=== PATIENT | male | born 1955 | race American Indian/Alaskan Native ===

== ENCOUNTER 2020-12-31 15:18 | Inpatient (IN) | payer OTHER ==
--- NOTE | 2020-12-31 16:31 | Event Note ---
ED Screening Note Date of service: 12/31/20 Time: 16:29 ED Screening Note: pt c/o generalized weakness, fatigue, shortness of breath, diarrhea, generalized body aches and urinary frequency. Patient states that he got his last Covid vaccine last weeks and his symptoms started after getting vaccine. He denies any significant past medical hx O2 sat noted to 90s-94% on RA in triage This initial assessment/diagnostic orders/clinical plan/treatment(s) is/are subject to change based on patients health status, clinical progression and re- assessment by fellow clinical providers in the ED. Further treatment and workup at subsequent clinical providers discretion. Patient/guardian urged not to elope from the ED as their condition may be serious if not clinically assessed and managed. Initial orders include: labs/ekg/cxr
[2020-12-31 16:57] LABS: Mucus,Urine FEW /HPF
[2020-12-31 17:01] LABS: Bilirubin,Urine NEG (Negative); Blood,Urine SM (Negative); Color,Urine Yellow (Yellow); Urobilinogen,Urine < 2.0 mg/dL (<2.0)
--- NOTE | 2020-12-31 17:20 | XRay Report ---
CHEST 2 VIEWS INDICATION / CLINICAL INFORMATION: Chest Pain. COMPARISON: None available. FINDINGS: SUPPORT DEVICES: None. HEART / MEDIASTINUM: Borderline cardiomegaly LUNGS / PLEURA: Mild/moderate increased interstitial markings characteristic for pulmonary edema note d No pneumothorax. ADDITIONAL FINDINGS: No significant additional findings. IMPRESSION: 1. Mild CHF. Signer Name: Dejan Rob MD Signed: 12/31/2020 5:16 PM Workstation Name: [id number]
[2020-12-31 18:12] LABS: Basophils % (Auto) 0.4 % (0.0-1.8); Hematocrit 37.4 % (35.5-45.6); Hemoglobin 12.8 gm/dl (11.8-15.2); Lymphocytes # (Auto) 0.7 K/mm3 (1.2-5.4); Lymphocytes % (Auto) 7.5 % (13.4-35.0); Mean Corpuscular HGB Conc 34 % (32-34); Mean Corpuscular Volume 86 fl (84-94); Monocytes # (Auto) 0.6 K/mm3 (0.0-0.8); Monocytes % (Auto) 5.7 % (0.0-7.3); Platelet Count 184 K/mm3 (140-440); Red Blood Count 4.33 M/mm3 (3.65-5.03); Red Cell Distribution Width 13.4 % (13.2-15.2)
[2020-12-31 18:18] LABS: Alanine Aminotransferase 33 units/L (7-56); Albumin 3.4 g/dL (3.9-5); BUN/Creatinine Ratio 12; Blood Urea Nitrogen 16 mg/dL (9-20); Calcium 8.4 mg/dL (8.4-10.2); Hemolysis Index 5
--- NOTE | 2020-12-31 20:57 | Emergency Department Report ---
ED General Adult HPI - General Chief complaint: Upper Respiratory Infection Stated complaint: YUNIOR, NOT REALLY EATING, NO ENERGY PUI?: Yes Time Seen by Provider: 12/31/20 20:33 Source: patient, RN notes reviewed Mode of arrival: Ambulatory Limitations: No Limitations - History of Present Illness Initial comments: The patient was evaluated in the emergency department for symptoms described in the history of present illness. He/she was evaluated in the context of the global COVID-19 pandemic, which necessitated consideration that the patient might be at risk for infection with the virus that causes COVID-19. Institutional protocols and algorithms that pertain to the evaluation of patients at risk for COVID-19 are in a state of rapid change based on information released by regulatory bodies including the CDC and federal and state organizations. These policies and algorithms were followed during the patient's care in the emergency department. Please note that these policies, procedures and recommendations changed on a rapid basis. During the entire history and physical examination, I had on complete personal protective equipment. The patient is a 65-year-old gentleman. He has a past medical history of obesit y, obstructive sleep apnea, does not use nocturnal CPAP, uses bite block, and hypertension. He also reports having received 2 rounds of COVID-19 vaccination. Patient reports that approximately 9 to 10 days ago, he developed malaise, shortness of breath, fatigue, weakness, questionable loss of taste and smell, and body aches. This is closely related to his second COVID-19 vaccination. To the best of his recollection, he does not have a history of hyperglycemia/diabetes, or congestive heart failure. No fevers that he is aware of. No headache. No neck pain. No chest pain. No abdominal pain. No urinary symptoms. Positive intermittent diarrhea. Positive body aches. He typically sleeps on 2-3 pillows, but recently has been sleeping flat. No unintentional weight gain that he is aware of. Symptoms worsen with physical exertion. They decreased with rest. -: Gradual, days(s) Consistency: intermittent Improves with: rest Worsens with: movement - Related Data Previous Rx's Medication Instructions Recorded Last Taken Type HYDROcodone/APAP 7.5-325 [[place] 1 each PO Q6HR PRN #20 tablet 11/16/13 Unknown Rx 7.5/325 mg] Allergies Allergy/AdvReac Type Severity Reaction Status Date / Time No Known Allergies Allergy Unverified 11/16/13 13:08 ED Review of Systems ROS: Stated complaint: YUNIOR, NOT REALLY EATING, NO ENERGY Other details as noted in HPI Constitutional: malaise, weakness Eyes: denies: eye discharge ENT: congestion Respiratory: shortness of breath Cardiovascular: dyspnea on exertion Gastrointestinal: denies: nausea, vomiting, hematemesis, melena, hematochezia Genitourinary: denies: dysuria Musculoskeletal: myalgia Neurological: weakness Hematological/Lymphatic: denies: easy bleeding ED Past Medical Hx - Past Medical History Previous Medical History?: Yes Hx GERD: Yes Additional medical history: Rotator tendinitis - Surgical History Past Surgical History?: No - Social History Smoking Status: Former Smoker Substance Use Type: Prescribed - Medications Home Medications: Home Medications Medication Instructions Recorded Confirmed Last Taken Type HYDROcodone/APAP 7.5-325 [[place] 1 each PO Q6HR PRN #20 tablet 11/16/13 Unknown Rx 7.5/325 mg] ED Physical Exam - General Limitations: Physical Limitation General appearance: alert, anxious, obese - Head Head exam: Present: atraumatic, normocephalic - Eye Eye exam: Present: normal appearance, EOMI. Absent: nystagmus - ENT ENT exam: Present: normal exam, normal orophraynx, mucous membranes moist, normal external ear exam - Neck Neck exam: Present: normal inspection, full ROM. Absent: tenderness, meningi smus - Respiratory Respiratory exam: Present: rales. Absent: respiratory distress, wheezes, rhonchi, stridor - Cardiovascular Cardiovascular Exam: Present: regular rate, normal rhythm, normal heart sounds, JVD (2 to 3 cm of JVD bilaterally). Absent: bradycardia, tachycardia, irregular rhythm, systolic murmur, diastolic murmur, rubs, gallop - GI/Abdominal GI/Abdominal exam: Present: soft. Absent: distended, tenderness, guarding, rebound, rigid, pulsatile mass - Rectal Rectal exam: Present: deferred - Extremities Exam Extremities exam: Present: normal inspection, full ROM, pedal edema (1+ edema bi lateral lower extremities), other (2+ pulses noted in the bilateral upper and lower extremities. There is no palpable cord. negative Homans sign. Muscular compartments are soft. The pelvis is stable.). Absent: calf tenderness - Back Exam Back exam: Present: normal inspection, full ROM. Absent: tenderness, CVA tenderness (R), CVA tenderness (L), paraspinal tenderness, vertebral tenderness - Neurological Exam Neurological exam: Present: alert, normal gait, other (No facial droop. Tongue midline. Extraocular movements intact bilaterally. Facial sensation intact to light touch in V1, V2, V3 distribution bilaterally. 5 and a 5 strength in 4 extremities. Sensation intact to light touch in 4 extremities.). Absent: motor sensory deficit - Psychiatric Psychiatric exam: Present: normal affect, normal mood, anxious - Skin Skin exam: Present: warm, dry, intact, normal color. Absent: rash ED Course Vital Signs 12/31/20 12/31/20 16:28 21:20 Temperature 99 F Pulse Rate 99 H Respiratory 22 Rate Blood Pressure 145/77 O2 Sat by Pulse 94 Oximetry O2 Sat by Pulse 89 Oximetry [ Digit-Finger] - Reevaluation(s) Reevaluation #1: 12/31/20 21:17 Differential diagnosis, including but not limited to: COVID-19, cardiomyopathy, congestive heart failure, adverse effect of vaccination Assessment and plan: 65-year-old gentleman, hypoxic on room air, to 89%, with shortness of breath, malaise, fatigue, chest x-ray suggestive of congestive heart failure, no known history of diabetes, with clinical and radiographic ma nifestations of decompensated acute congestive heart failure. Placed patient on isolation. Administer supplemental oxygen, steroids, insulin for hyperglycemia, aspirin, and Lasix therapy. Start isolation precautions. Obtain Covid laboratory studies. Obtain troponin, proBNP. Admit patient to the medical service for initial evaluation, management, and stabilization. Have discussed this plan of care with the patient, who verbalized understanding, and who is amenable to this plan of care. Hospital physician is paged to arrange admission. 12/31/20 21:43 Dr Sutherland to admit to IMS/ TELEmetry - Pulse Oximetry Interpretation Digit-Finger Initial Pulse Oximetry Readin O2 Sat by Pulse Oximetry: 89 Actions Taken: other (Placed on supplemental oxygen/nasal cannula) ED Medical Decision Making - Lab Data Result diagrams: 12/31/20 16:59 12/31/20 16:59 Vital Signs 12/31/20 16:28 Temperature 99 F Pulse Rate 99 H Respiratory 22 Rate Blood Pressure 145/77 O2 Sat by Pulse 94 Oximetry Lab Results 12/31/20 12/31/20 12/31/20 Range/Units 16:39 16:59 16:59 WBC 9.9 (4.5-11.0) K/mm3 RBC 4.33 (3.65-5.03) M/mm3 Hgb 12.8 (11.8-15.2) gm/dl Hct 37.4 (35.5-45.6) % MCV 86 (84-94) fl MCH 30 (28-32) pg MCHC 34 (32-34) % RDW 13.4 (13.2-15.2) % Plt Count 184 (140-440) K/mm3 Lymph % (Auto) 7.5 L (13.4-35.0) % [place] % (Auto) 5.7 (0.0-7.3) % Eos % (Auto) 0.0 (0.0-4.3) % Baso % (Auto) 0.4 (0.0-1.8) % Lymph # (Auto) 0.7 L (1.2-5.4) K/mm3 [place] # (Auto) 0.6 (0.0-0.8) K/mm3 Eos # (Auto) 0.0 (0.0-0.4) K/mm3 Baso # (Auto) 0.0 (0.0-0.1) K/mm3 Seg Neutrophils % 86.4 H (40.0-70.0) % Seg Neutrophils # 8.6 H (1.8-7.7) K/mm3 Sodium 132 L (137-145) mmol/L Potassium 4.8 (3.6-5.0) mmol/L Chloride 91.6 L (98-107) mmol/L Carbon Dioxide 25 (22-30) mmol/L Anion Gap 20 mmol/L BUN 16 (9-20) mg/dL Creatinine 1.3 (0.8-1.3) mg/dL Estimated GFR > 60 ml/min BUN/Creatinine Ratio 12 % Glucose 326 H (75-100) mg/dL Calcium 8.4 (8.4-10.2) mg/dL Total Bilirubin 0.50 (0.1-1.2) mg/dL AST 39 (5-40) units/L ALT 33 (7-56) units/L Alkaline Phosphatase 90 (35-129) units/L Total Creatine Kinase (55-170) units/L Troponin T < 0.010 (0.00-0.029) ng/mL Total Protein 7.0 (6.3-8.2) g/dL Albumin 3.4 L (3.9-5) g/dL Albumin/Globulin Ratio 0.9 % Lipase 64 H (13-60) units/L Urine Color Yellow (Yellow) Urine Turbidity Clear (Clear) Urine pH 5.0 (5.0-7.0) Ur Specific [place] 1.029 (1.003-1.030) Urine Protein 100 mg/dl (Negative) mg/dL Urine Glucose (UA) >=500 (Negative) mg/dL Urine Ketones 20 (Negative) mg/dL Urine Blood Sm (Negative) Urine Nitrite Neg (Negative) Ur Reducing Substances Not Reportable Urine Bilirubin Neg (Negative) Urine Ictotest Not Reportable Urine Urobilinogen < 2.0 (<2.0) mg/dL Ur Leukocyte Esterase Neg (Negative) Urine WBC (Auto) 1.0 (0.0-6.0) /HPF Urine RBC (Auto) 2.0 (0.0-6.0) /HPF U Epithel Cells (Auto) < 1.0 (0-13.0) /HPF Urine Mucus Few /HPF // Range/Units 17:04 WBC (4.5-11.0) K/mm3 RBC (3.65-5.03) M/mm3 Hgb (11.8-15.2) gm/dl Hct (35.5-45.6) % MCV (84-94) fl MCH (28-32) pg MCHC (32-34) % RDW (13.2-15.2) % Plt Count (140-440) K/mm3 Lymph % (Auto) (13.4-35.0) % [place] % (Auto) (0.0-7.3) % Eos % (Auto) (0.0-4.3) % Baso % (Auto) (0.0-1.8) % Lymph # (Auto) (1.2-5.4) K/mm3 [place] # (Auto) (0.0-0.8) K/mm3 Eos # (Auto) (0.0-0.4) K/mm3 Baso # (Auto) (0.0-0.1) K/mm3 Seg Neutrophils % (40.0-70.0) % Seg Neutrophils # (1.8-7.7) K/mm3 Sodium (137-145) mmol/L Potassium (3.6-5.0) mmol/L Chloride (98-107) mmol/L Carbon Dioxide (22-30) mmol/L Anion Gap mmol/L BUN (9-20) mg/dL Creatinine (0.8-1.3) mg/dL Estimated GFR ml/min BUN/Creatinine Ratio % Glucose (75-100) mg/dL Calcium (8.4-10.2) mg/dL Total Bilirubin (0.1-1.2) mg/dL AST (5-40) units/L ALT (7-56) units/L Alkaline Phosphatase (35-129) units/L Total Creatine Kinase 378 H (55-170) units/L Troponin T (0.00-0.029) ng/mL Total Protein (6.3-8.2) g/dL Albumin (3.9-5) g/dL Albumin/Globulin Ratio % Lipase (13-60) units/L Urine Color (Yellow) Urine Turbidity (Clear) Urine pH (5.0-7.0) Ur Specific [place] (1.003-1.030) Urine Protein (Negative) mg/dL Urine Glucose (UA) (Negative) mg/dL Urine Ketones (Negative) mg/dL Urine Blood (Negative) Urine Nitrite (Negative) Ur Reducing Substances Urine Bilirubin (Negative) Urine Ictotest Urine Urobilinogen (<2.0) mg/dL Ur Leukocyte Esterase (Negative) Urine WBC (Auto) (0.0-6.0) /HPF Urine RBC (Auto) (0.0-6.0) /HPF U Epithel Cells (Auto) (0-13.0) /HPF Urine Mucus /HPF - EKG Data -: EKG Interpreted by Ut EKG shows normal: sinus rhythm Rate: normal - EKG Data When compared to previous EKG there are: previous EKG unavailable 12/31/20 21:19 There is no prior EKG available for interpretation. Sinus rhythm. 95 bpm. Left axis deviation, left anterior fascicular block. Left ventricular hypertrophy. T wave inversions in the lateral leads. This is an abnormal EKG, this is not a STEMI. - Radiology Data Radiology results: pending, report reviewed, image reviewed [facility] [address] [place] [address] XRay Report Signed Patient: RENE LANDRUM MR#: [id number] : 1955 Acct:[id number] Age/Sex: 65 / M ADM Date: 12/31/20 Loc: ED Attending Dr: Ordering Physician: ROLY SAUER Date of Service: 12/31/20 Procedure(s): XR chest routine 2V Accession Number(s): [id number] cc: ROLY SAUER Fluoro Time In Minutes: CHEST 2 VIEWS INDICATION / CLINICAL INFORMATION: Chest Pain. COMPARISON: None available. FINDINGS: SUPPORT DEVICES: None. HEART / MEDIASTINUM: Borderline cardiomegaly LUNGS / PLEURA: Mild/moderate increased interstitial markings characteristic for pulmonary edema noted No pneumothorax. ADDITIONAL FINDINGS: No significant additional findings. IMPRESSION: 1. Mild CHF. Signer Name: Dejan Rob MD Signed: 12/31/2020 5:16 PM Workstation Name: [id number] Transcribed By: TL Dictated By: Dejan Rob MD Electronically Authenticated By: Dejan Rob MD Signed Date/Time: 12/31/201715 DD/ 14 Critical Care Time: Yes Critical care time in (mins) excluding proc time.: 35 Critical care attestation.: If time is entered above; I have spent that time in minutes in the direct care of this critically ill patient, excluding procedure time. ED Disposition Clinical Impression: Acute respiratory failure with hypoxia, Hyperglycemia, Suspected 2019 novel coronavirus infection, BMI 36.0-36.9,adult Acute CHF Qualifiers: Heart failure type: unspecified Qualified Code(s): I50.9 - Heart failure, unspecified Disposition: OP ADMIT IP TO THIS HOSP Is pt being admited?: Yes Does the pt Need Aspirin: No Condition: Fair Referrals: PRIMARY CARE, [Primary Care Provider] - 3-5 Days
[2020-12-31] MEDS ORDERED: FUROSEMIDE 40 MG/4 ML INJ IV ONE (21:12)
[2020-12-31] MEDS ORDERED: dexAMETHasone 4 MG/ML VIAL IV ONE (21:12)
[2020-12-31] MEDS ORDERED: INSULIN REGULAR, HUMAN 100 UNITS/1 ML IV ONE (21:12)
[2020-12-31] MEDS ORDERED: ACETAMINOPHEN 325 MG TAB PO ONE (21:14)
[2020-12-31] MEDS ORDERED: ASPIRIN 325 MG TAB PO ONE (21:14)
[2020-12-31] MEDS ORDERED: NITROGLYCERIN 0.4 MG TAB SUBL SL PRN (21:47)
[2020-12-31] MEDS ORDERED: hydrALAZINE 20 MG/1 ML INJ IV PRN (21:51)
[2020-12-31] MEDS ORDERED: DEXTROSE 50% IN WATER (25GM) 50 ML SYRINGE IV PRN (21:54)
--- NOTE | 2020-12-31 21:59 | History and Physical Report ---
History of Present Illness Date of examination: 12/31/20 Date of admission: 12/31/2020 Chief complaint: Shortness of breath upper respiratory tract infection History of present illness: 65-year old male with past medical history of obesity, obstructive sleep apnea, does not use nocturnal CPAP, uses bite block, and hypertension was brought to the emergency room because of swelling of the legs malaise shortness of breath fatigue weakness questionable loss of taste and smell and body ache for the last 19 days. He also reports having received 2 rounds of COVID-19 vaccination. This is closely related to his second COVID-19 vaccination. No fevers that he is aware of. No headache. No neck pain. No chest pain. No abdominal pain. No urinary symptoms. Positive intermittent diarrhea. Positive body aches. He typically sleeps on 2-3 pillows, but recently has been sleeping flat. No unintentional weight gain that he is aware of. In the emergency room patient is found to have acute CHF exacerbation. Also patient O2 sat is 89%. Also patient is hyperglycemic blood glucose is 326. Also patient is admitted for suspected PUI Past History Past Medical History: COPD, hypertension, other (Obesity obstructive sleep apnea) Medications and Allergies Allergies Allergy/AdvReac Type Severity Reaction Status Date / Time No Known Allergies Allergy Unverified 11/16/13 13:08 Home Medications Medication Instructions Recorded Confirmed Last Taken Type HYDROcodone/APAP 7.5-325 [[place] 1 each PO Q6HR PRN #20 tablet 11/16/13 Unknown Rx 7.5/325 mg] Active Meds: Active Medications Furosemide (Furosemide 40 Mg/4 Ml Inj) 40 mg IV BID@0600,1800 RENÉ Ceftriaxone Sodium (Rocephin/Ns 2 Gm/100 Ml) 2 gm in 100 mls @ 200 mls/hr IV Q24H RENÉ; Protocol Nitroglycerin (Nitroglycerin 0.4 Mg Tab Subl) 0.4 mg SL .Q5MIN PRN PRN Reason: Chest Pain Review of Systems Cardiovascular: edema, shortness of breath, dyspnea on exertion Respiratory: shortness of breath, dyspnea on exertion Integumentary: other (Edema) Exam - Constitutional Vitals: Temp Pulse Resp BP Pulse Ox 99 F 99 H 22 145/77 89 12/31/20 16:28 12/31/20 16:28 12/31/20 16:28 12/31/20 16:28 12/31/20 21:44 General appearance: Present: no acute distress, well-nourished - EENT Eyes: Present: PERRL ENT: hearing intact, clear oral mucosa - Neck Neck: Present: supple, normal ROM - Respiratory Respiratory effort: normal Respiratory: bilateral: rales - Cardiovascular Heart Sounds: Present: S1 & S2. Absent: rub, click - Extremities Extremities: pulses symmetrical Extremity abnormal: edema Peripheral Pulses: within normal limits - Abdominal General gastrointestinal: Present: soft, non-tender, non-distended, normal bowel sounds Male genitourinary: Present: normal - Integumentary Integumentary: Present: clear, warm, dry - Musculoskeletal Musculoskeletal: gait normal, strength equal bilaterally - Psychiatric Psychiatric: appropriate mood/affect, intact judgment & insight - Neurologic Neurologic: CNII-XII intact, moves all extremities HEART Score - HEART Score Troponin: Troponin T < 0.010 ng/mL (0.00-0.029) 12/31/20 16:59 Results - Labs CBC & Chem 7: 12/31/20 16:59 12/31/20 16:59 Labs: Laboratory Last Values WBC 9.9 K/mm3 (4.5-11.0) 12/31/20 16:59 RBC 4.33 M/mm3 (3.65-5.03) 12/31/20 16:59 Hgb 12.8 gm/dl (11.8-15.2) 12/31/20 16:59 Hct 37.4 % (35.5-45.6) 12/31/20 16:59 MCV 86 fl (84-94) 12/31/20 16:59 MCH 30 pg (28-32) 12/31/20 16:59 MCHC 34 % (32-34) 12/31/20 16:59 RDW 13.4 % (13.2-15.2) 12/31/20 16:59 Plt Count 184 K/mm3 (140-440) 12/31/20 16:59 Lymph % (Auto) 7.5 % (13.4-35.0) L 12/31/20 16:59 [place] % (Auto) 5.7 % (0.0-7.3) 12/31/20 16:59 Eos % (Auto) 0.0 % (0.0-4.3) 12/31/20 16:59 Baso % (Auto) 0.4 % (0.0-1.8) 12/31/20 16:59 Lymph # (Auto) 0.7 K/mm3 (1.2-5.4) L 12/31/20 16:59 [place] # (Auto) 0.6 K/mm3 (0.0-0.8) 12/31/20 16:59 Eos # (Auto) 0.0 K/mm3 (0.0-0.4) 12/31/20 16:59 Baso # (Auto) 0.0 K/mm3 (0.0-0.1) 12/31/20 16:59 Seg Neutrophils % 86.4 % (40.0-70.0) H 12/31/20 16:59 Seg Neutrophils # 8.6 K/mm3 (1.8-7.7) H 12/31/20 16:59 Sodium 132 mmol/L (137-145) L 12/31/20 16:59 Potassium 4.8 mmol/L (3.6-5.0) 12/31/20 16:59 Chloride 91.6 mmol/L (98-107) L 12/31/20 16:59 Carbon Dioxide 25 mmol/L (22-30) 12/31/20 16:59 Anion Gap 20 mmol/L 12/31/20 16:59 BUN 16 mg/dL (9-20) 12/31/20 16:59 Creatinine 1.3 mg/dL (0.8-1.3) 12/31/20 16:59 Estimated GFR > 60 ml/min 12/31/20 16:59 BUN/Creatinine Ratio 12 % 12/31/20 16:59 Glucose 326 mg/dL (75-100) H 12/31/20 16:59 Calcium 8.4 mg/dL (8.4-10.2) 12/31/20 16:59 Total Bilirubin 0.50 mg/dL (0.1-1.2) 12/31/20 16:59 AST 39 units/L (5-40) 12/31/20 16:59 ALT 33 units/L (7-56) 12/31/20 16:59 Alkaline Phosphatase 90 units/L (35-129) 12/31/20 16:59 Total Creatine Kinase 378 units/L (55-170) H 12/31/20 17:04 Troponin T < 0.010 ng/mL (0.00-0.029) 12/31/20 16:59 Total Protein 7.0 g/dL (6.3-8.2) 12/31/20 16:59 Albumin 3.4 g/dL (3.9-5) L 12/31/20 16:59 Albumin/Globulin Ratio 0.9 % 12/31/20 16:59 Lipase 64 units/L (13-60) H 12/31/20 16:59 Urine Color Yellow (Yellow) 12/31/20 16:39 Urine Turbidity Clear (Clear) 12/31/20 16:39 Urine pH 5.0 (5.0-7.0) 12/31/20 16:39 Ur Specific [place] 1.029 (1.003-1.030) 12/31/20 16:39 Urine Protein 100 mg/dl mg/dL (Negative) 12/31/20 16:39 Urine Glucose (UA) >=500 mg/dL (Negative) 12/31/20 16:39 Urine Ketones 20 mg/dL (Negative) 12/31/20 16:39 Urine Blood Sm (Negative) 12/31/20 16:39 Urine Nitrite Neg (Negative) 12/31/20 16:39 Ur Reducing Substances Not Reportable 12/31/20 16:39 Urine Bilirubin Neg (Negative) 12/31/20 16:39 Urine Ictotest Not Reportable 12/31/20 16:39 Urine Urobilinogen < 2.0 mg/dL (<2.0) 12/31/20 16:39 Ur Leukocyte Esterase Neg (Negative) 12/31/20 16:39 Urine WBC (Auto) 1.0 /HPF (0.0-6.0) 12/31/20 16:39 Urine RBC (Auto) 2.0 /HPF (0.0-6.0) 12/31/20 16:39 U Epithel Cells (Auto) < 1.0 /HPF (0-13.0) 12/31/20 16:39 Urine Mucus Few /HPF 12/31/20 16:39 - Imaging and Cardiology Chest x-ray: report reviewed Assessment and Plan VTE prophylaxis?: Chemical Plan of care discussed with patient/family: Yes - Patient Problems (1) Acute CHF Current Visit: Yes Status: Acute Qualifiers: Heart failure type: unspecified Qualified Code(s): I50.9 - Heart failure, unspecified Plan to address problem: Admit admit the patient to the medical telemetry. Cardiac diet. Fluid restr iction 1500cc/day. Lasix 40 mg IV every 12 hours. Will maintain input and output. Echocardiogram. Will consult cardiology if needed (2) Acute respiratory failure with hypoxia Current Visit: Yes Status: Acute Plan to address problem: Oxygen by nasal cannula 3 L/min. DuoNeb by nebulizer every 4 hours as needed. Dexamethasone 6 mg IV daily. We also put the patient on CPAP as needed. We also sent for Covid test (3) BMI 36.0-36.9,adult Current Visit: Yes Status: Acute Plan to address problem: We counseled the patient regarding weight reduction. We also consult dietitian evaluation (4) Hyperglycemia Current Visit: Yes Status: Acute Plan to address problem: We will put the patient on Humalog sliding scale Accu-Chek before meals and at bedtime with moderate dose coverage. Recheck BMP in the morning we also consult diabetic education (5) Suspected 2019 novel coronavirus infection Current Visit: Yes Status: Acute Plan to address problem: Oxygen via nasal cannula 3 L/min. Dexamethasone 6 mg IV daily. Rocephin 2 2 g IV daily and Zithromax 500 IV daily. We do the blood cultures sputum culture. We will send the Covid PCR. We also follow the Covid inflammatory markers. Will consult infectious disease for evaluation of remdesivir (6) DVT prophylaxis Current Visit: Yes Status: Acute Plan to address problem: Heparin 5000 units subcu every 8 hours. Protonix 40 mg p.o. daily for GI prophylaxis. Patient is a full code
[2020-12-31] MEDS ORDERED: cefTRIAXone/NS 2 GM/100 ML 2 GM/100 ML BAG IV SCH (22:00)
[2020-12-31] MEDS ORDERED: FAMOTIDINE 20 MG TAB PO SCH (22:00)
[2020-12-31] MEDS ORDERED: AZITHROMYCIN/NS 500 MG/250 ML 500 MG/250 ML BAG IV SCH (22:00)
[2021-01-01] MEDS: INSULIN LISPRO 100 UNIT/ML SUB-Q SCH ×5 (01:00→21:49)
[2021-01-01] MEDS: HEPARIN 5,000 UNIT/1 ML VIAL SUB-Q SCH ×4 (03:00→21:46)
[2021-01-01] MEDS: FUROSEMIDE 40 MG/4 ML INJ IV SCH ×2 (05:58→16:59)
[2021-01-01 07:48] LABS: Hematocrit 36.1 % (35.5-45.6); Hemoglobin 12.3 gm/dl (11.8-15.2); Mean Corpuscular HGB Conc 34 % (32-34); Mean Corpuscular Volume 86 fl (84-94); Platelet Count 190 K/mm3 (140-440); Red Blood Count 4.17 M/mm3 (3.65-5.03); Red Cell Distribution Width 13.3 % (13.2-15.2)
[2021-01-01 07:57] LABS: BUN/Creatinine Ratio 16; Blood Urea Nitrogen 19 mg/dL (9-20); Calcium 8.7 mg/dL (8.4-10.2); Hemolysis Index 1
[2021-01-01] MEDS: HYDROcodone/ACETAMINOPHEN 7.5-325MG TAB PO PRN (08:01)
[2021-01-01] MEDS: PANTOPRAZOLE 40 MG TAB PO SCH (08:01)
--- NOTE | 2021-01-01 09:10 | Progress Note ---
Assessment and Plan Assessment and plan: -- Acute CHF[CHF on chest x-ray] Current Visit: Yes Status: Acute Patient has no history of CHF in the past , IV diuretics Fluid restriction , input output monitoring , echocardiogram for LV function ejection fraction Low-sodium diet , cardiology consult if needed --Acute respiratory failure with hypoxia Current Visit: Yes Status: Acute Requiring supplemental oxygen 3lt NC. Treat the underlying cause Empiric antibiotics, home oxygen evaluation at discharge --Obesity BMI 36.0-36.9,adult Current Visit: Yes Status: Acute Patient needs dietary modification, exercise as tolerated and weight reduction When medically stable -- Hyperglycemia Current Visit: Yes Status: Acute Accu-Chek sliding scale coverage ADA diet Check A1c --PUI suspected 2019 novel coronavirus infection Current Visit: Yes Status: Acute Oxygen via nasal cannula 3 L/min. Contact and droplet isolation, dexamethasone 6 mg IV daily. Empiric antibiotics, follow horn PCR, procalcitonin levels No infiltrate on chest x-ray -- DVT prophylaxis Current Visit: Yes Status: Acute Plan to address problem: Heparin 5000 units subcu every 8 hours. We will closely monitor the patient and adjust the management as needed Plan of care reviewed with the patient and her nurse 01/01/2021; follow-up horn PCR test Continue isolation History Interval history: I have seen and examined the patient at the bedside this morning, patient is PUI Isolation precautions, PPE protocols strictly followed per COVID-19 guidelines Patient was admitted with worsening shortness of breath Horn PCR test was sent pending report Patient is still complains of not feeling well and some shortness of breath Vital signs noted Hospitalist Physical - Constitutional Vitals: Temp Pulse Resp BP Pulse Ox 98.4 F 87 18 119/66 95 01/01/21 04:15 01/01/21 04:15 01/01/21 08:01 01/01/21 04:15 01/01/21 09:00 General appearance: Present: mild distress, well-nourished, obese - EENT Eyes: Present: PERRL, EOM intact - Neck Neck: Present: supple, normal ROM - Respiratory Respiratory effort: normal Respiratory: bilateral: diminished, negative: rales, rhonchi, wheezing - Cardiovascular Rhythm: regular Heart Sounds: Present: S1 & S2 - Extremities Extremities: no ischemia, No edema - Abdominal General gastrointestinal: soft, non-tender, non-distended, normal bowel sounds - Integumentary Integumentary: Present: clear, warm - Psychiatric Psychiatric: appropriate mood/affect, cooperative - Neurologic Neurologic: CNII-XII intact, moves all extremities HEART Score - HEART Score Troponin: Troponin T < 0.010 ng/mL (0.00-0.029) 12/31/20 21:51 Results - Labs CBC & Chem 7: 01/01/21 06:38 01/01/21 06:38 Labs: Laboratory Last Values WBC 8.0 K/mm3 (4.5-11.0) 01/01/21 06:38 RBC 4.17 M/mm3 (3.65-5.03) 01/01/21 06:38 Hgb 12.3 gm/dl (11.8-15.2) 01/01/21 06:38 Hct 36.1 % (35.5-45.6) 01/01/21 06:38 MCV 86 fl (84-94) 01/01/21 06:38 MCH 30 pg (28-32) 01/01/21 06:38 MCHC 34 % (32-34) 01/01/21 06:38 RDW 13.3 % (13.2-15.2) 01/01/21 06:38 Plt Count 190 K/mm3 (140-440) 01/01/21 06:38 Lymph % (Auto) 7.5 % (13.4-35.0) L 12/31/20 16:59 [place] % (Auto) 5.7 % (0.0-7.3) 12/31/20 16:59 Eos % (Auto) 0.0 % (0.0-4.3) 12/31/20 16:59 Baso % (Auto) 0.4 % (0.0-1.8) 12/31/20 16:59 Lymph # (Auto) 0.7 K/mm3 (1.2-5.4) L 12/31/20 16:59 [place] # (Auto) 0.6 K/mm3 (0.0-0.8) 12/31/20 16:59 Eos # (Auto) 0.0 K/mm3 (0.0-0.4) 12/31/20 16:59 Baso # (Auto) 0.0 K/mm3 (0.0-0.1) 12/31/20 16:59 Seg Neutrophils % Publicity Expert 01/01/21 06:38 Seg Neutrophils # 8.6 K/mm3 (1.8-7.7) H 12/31/20 16:59 D-Dimer 297.08 ng/mlDDU (0-234) H 12/31/20 21:51 Sodium 134 mmol/L (137-145) L 01/01/21 06:38 Potassium 4.7 mmol/L (3.6-5.0) 01/01/21 06:38 Chloride 94.0 mmol/L (98-107) L 01/01/21 06:38 Carbon Dioxide 23 mmol/L (22-30) 01/01/21 06:38 Anion Gap 22 mmol/L 01/01/21 06:38 BUN 19 mg/dL (9-20) 01/01/21 06:38 Creatinine 1.2 mg/dL (0.8-1.3) 01/01/21 06:38 Estimated GFR > 60 ml/min 01/01/21 06:38 BUN/Creatinine Ratio 16 % 01/01/21 06:38 Glucose 353 mg/dL (75-100) H 01/01/21 06:38 POC Glucose 322 mg/dL (70-105) H 01/01/21 00:55 Lactic Acid 1.40 mmol/L (0.7-2.0) 12/31/20 21:51 Calcium 8.7 mg/dL (8.4-10.2) 01/01/21 06:38 Magnesium 2.20 mg/dL (1.7-2.3) 12/31/20 21:51 Ferritin 737.1 ng/mL (30.0-300.0) H 12/31/20 21:51 Total Bilirubin 0.50 mg/dL (0.1-1.2) 12/31/20 16:59 AST 39 units/L (5-40) 12/31/20 16:59 ALT 33 units/L (7-56) 12/31/20 16:59 Alkaline Phosphatase 90 units/L (35-129) 12/31/20 16:59 Lactate Dehydrogenase 356 units/L (91-180) H 12/31/20 21:51 Total Creatine Kinase 374 units/L (55-170) H 12/31/20 21:51 Troponin T < 0.010 ng/mL (0.00-0.029) 12/31/20 21:51 C-Reactive Protein 32.00 mg/dL (0.00-1.30) H 12/31/20 21:51 NT-Pro-B Natriuret Pep 64.03 pg/mL (0-900) 12/31/20 21:51 Total Protein 7.0 g/dL (6.3-8.2) 12/31/20 16:59 Albumin 3.4 g/dL (3.9-5) L 12/31/20 16:59 Albumin/Globulin Ratio 0.9 % 12/31/20 16:59 Lipase 64 units/L (13-60) H 12/31/20 16:59 Urine Color Yellow (Yellow) 12/31/20 16:39 Urine Turbidity Clear (Clear) 12/31/20 16:39 Urine pH 5.0 (5.0-7.0) 12/31/20 16:39 Ur Specific Reserve 1.029 (1.003-1.030) 12/31/20 16:39 Urine Protein 100 mg/dl mg/dL (Negative) 12/31/20 16:39 Urine Glucose (UA) >=500 mg/dL (Negative) 12/31/20 16:39 Urine Ketones 20 mg/dL (Negative) 12/31/20 16:39 Urine Blood Sm (Negative) 12/31/20 16:39 Urine Nitrite Neg (Negative) 12/31/20 16:39 Ur Reducing Substances Not Reportable 12/31/20 16:39 Urine Bilirubin Neg (Negative) 12/31/20 16:39 Urine Ictotest Not Reportable 12/31/20 16:39 Urine Urobilinogen < 2.0 mg/dL (<2.0) 12/31/20 16:39 Ur Leukocyte Esterase Neg (Negative) 12/31/20 16:39 Urine WBC (Auto) 1.0 /HPF (0.0-6.0) 12/31/20 16:39 Urine RBC (Auto) 2.0 /HPF (0.0-6.0) 12/31/20 16:39 U Epithel Cells (Auto) < 1.0 /HPF (0-13.0) 12/31/20 16:39 Urine Mucus Few /HPF 12/31/20 16:39 Microbiology: Microbiology 12/31/20 21:45 Peripheral/Venous Blood Culture - Preliminary Culture in Progress 12/31/20 21:51 Peripheral/Venous Blood Culture - Preliminary Culture in Progress Zafar/IV: Voiding Method Urinal Active Medications - Current Medications Current Medications: Generic Name Dose Route Start Last Admin Trade Name Freq PRN Reason Stop Dose Admin Hydrocodone Bitart/Acetaminophen 1 each 12/31/20 21:54 01/01/21 08:01 Hydrocodone/Acetaminophen 7.5-325mg Tab PO 1 each Q6HR PRN Administration Pain, Moderate (4-6) Dexamethasone 6 mg 01/01/21 10:00 Dexamethasone 4 Mg/Ml Vial IV DAILY RENÉ Dextrose 50 ml 12/31/20 21:54 Dextrose 50% In Water (25gm) 50 Ml Syringe IV Q30MIN PRN Hypoglycemia Protocol Furosemide 40 mg 01/01/21 06:00 01/01/21 05:58 Furosemide 40 Mg/4 Ml Inj IV 40 mg BID@0600,1800 [facility] Administration Heparin Sodium (Porcine) 5,000 unit 12/31/20 22:00 01/01/21 07:28 Heparin 5,000 Unit/1 Ml Vial SUB-Q Not Given Q8HR RENÉ Hydralazine HCl 10 mg 12/31/20 21:51 Hydralazine 20 Mg/1 Ml Inj IV Q6H PRN htn Ceftriaxone Sodium 2 gm in 100 mls @ 200 mls/hr 12/31/20 22:00 01/01/21 03:30 Rocephin/Ns 2 Gm/100 Ml IV Infused Q24H RENÉ Infusion Protocol Azithromycin 500 mg in 250 mls @ 250 mls/hr 12/31/20 22:00 01/01/21 03:30 Zithromax/Ns IV 250 mls/hr Q24H RENÉ Administration Protocol Insulin Human Lispro 0 unit 12/31/20 22:00 01/01/21 08:02 Insulin Lispro 100 Unit/Ml SUB-Q 8 unit ACHS RENÉ Administration Protocol Nitroglycerin 0.4 mg 12/31/20 21:47 Nitroglycerin 0.4 Mg Tab Subl SL .Q5MIN PRN Chest Pain Pantoprazole Sodium 40 mg 01/01/21 07:30 01/01/21 08:01 Pantoprazole 40 Mg Tab PO 40 mg QDAC RENÉ Administration
[2021-01-01] MEDS: dexAMETHasone 4 MG/ML VIAL IV SCH (09:59)
[2021-01-01 12:17] LABS: Band Neutrophils # (Manual) 0.4 K/mm3; Total Cells Counted 100
[2021-01-01 12:18] LABS: Platelet Estimate Consistent w Auto; RBC Morphology Normal
--- NOTE | 2021-01-01 14:50 | Event Note ---
Date: 01/01/21 [place] PCR test is positive; 01/01/2021 Continue contact and droplet isolation Patient is requiring 3 L of supplemental NC oxygen Will start dexamethasone 6 mg IV for 10 days Remdesivir per protocol Monitor LFTs ID consult Inflammatory markers Prone positioning Home oxygen evaluation at discharge Patient reports that he received his second dose of vaccine 1 week ago Test report and plan of care discussed with the patient and his nurse. Informed Dr. Carl ID and requested ID consult.
[2021-01-01] MEDS: INSULIN NPH/REGULAR 70/30 INJ SUB-Q SCH (16:55)
[2021-01-01] MEDS ORDERED: INSULIN NPH/REGULAR 70/30 INJ SUB-Q SCH (17:00)
[2021-01-01] MEDS ORDERED: REMDESIVIR 200 MG in SODIUM CHLORIDE 0.9% 250ML 250 ML IV ONE (17:30)
--- NOTE | 2021-01-01 17:33 | Consultation ---
History of Present Illness - Reason for Consult Consult date: 01/01/21 - History of Present Illness 65-year-old male past medical history obesity, sleep apnea, hypertension brought to the hospital due to swelling of bilateral legs, shortness of breath, fatigue. He also complains of anosmia and dysgeusia for the past 19 days. He received both round of COVID-19 vaccine, with the second dose being 1 week prior to admission. Otherwise no acute symptoms. Found to be hypoxic on admission. Afebrile since admission with a white count of 8. Covid positive. Procalcitonin 0.25, normal creatinine clearance. Blood cultures no growth so far. Currently on ceftriaxone azithromycin. On 3 L nasal cannula. Imaging personally reviewed: Chest x-ray: Mild CHF Review of systems: Deferred to reduce to the risk of transmission of COVID-19 Past History Past Medical History: COPD, hypertension, other (Obesity obstructive sleep apnea) Medications and Allergies Allergies Allergy/AdvReac Type Severity Reaction Status Date / Time No Known Allergies Allergy Verified 12/31/20 21:57 Home Medications Medication Instructions Recorded Confirmed Last Taken Type HYDROcodone/APAP 7.5-325 [[place] 1 each PO Q6HR PRN #20 tablet 11/16/13 Unknown Rx 7.5/325 mg] Active Meds: Active Medications Hydrocodone Bitart/Acetaminophen (Hydrocodone/Acetaminophen 7.5-325mg Tab) 1 each PO Q6HR PRN PRN Reason: Pain, Moderate (4-6) Last Admin: 01/01/21 08:01 Dose: 1 each Documented by: Dexamethasone (Dexamethasone 4 Mg/Ml Vial) 6 mg IV DAILY [facility] Last Admin: 01/01/21 09:59 Dose: 6 mg Documented by: Dextrose (Dextrose 50% In Water (25gm) 50 Ml Syringe) 50 ml IV Q30MIN PRN; Protocol PRN Reason: Hypoglycemia Furosemide (Furosemide 40 Mg/4 Ml Inj) 40 mg IV BID@0600,1800 [facility] Last Admin: 01/01/21 16:59 Dose: 40 mg Documented by: Heparin Sodium (Porcine) (Heparin 5,000 Unit/1 Ml Vial) 5,000 unit SUB-Q Q8HR [facility] Last Admin: 01/01/21 13:22 Dose: 5,000 unit Documented by: Hydralazine HCl (Hydralazine 20 Mg/1 Ml Inj) 10 mg IV Q6H PRN PRN Reason: htn Ceftriaxone Sodium (Rocephin/Ns 2 Gm/100 Ml) 2 gm in 100 mls @ 200 mls/hr IV Q 24H [facility]; Protocol Last Infusion: 01/01/21 03:30 Dose: Infused Documented by: Azithromycin (Zithromax/Ns) 500 mg in 250 mls @ 250 mls/hr IV Q24H [facility]; Protocol Last Admin: 01/01/21 03:30 Dose: 250 mls/hr Documented by: REMDESIVIR 200 mg/ Sodium (Chloride) 250 mls @ 500 mls/hr IV ONCE ONE Stop: 01/01/21 17:59 Last Admin: 01/01/21 16:55 Dose: 500 mls/hr Documented by: REMDESIVIR 100 mg/ Sodium (Chloride) 250 mls @ 500 mls/hr IV Q24HR@2100 RENÉ Stop: 01/05/21 21:29 Insulin Human Isoph/Insulin Regular (Insulin Nph/Regular 70/30 Inj) 25 unit SUB-Q BIDDIAB [facility] Last Admin: 01/01/21 16:55 Dose: 25 unit Documented by: Insulin Human Lispro (Insulin Lispro 100 Unit/Ml) 0 unit SUB-Q ACHS [facility]; Protocol Last Admin: 01/01/21 16:57 Dose: 8 unit Documented by: Nitroglycerin (Nitroglycerin 0.4 Mg Tab Subl) 0.4 mg SL .Q5MIN PRN PRN Reason: Chest Pain Pantoprazole Sodium (Pantoprazole 40 Mg Tab) 40 mg PO QDAC [facility] Last Admin: 01/01/21 08:01 Dose: 40 mg Documented by: Sodium Chloride (Sodium Chloride 0.9% 50 Ml Ivpb) 50 ml IV Q24HR@2100 RENÉ Stop: 01/05/21 21:01 Physical Examination - Physical Exam Narrative exam: Physical exam deferred to reduce risk of transmission of COVID-19. Please refer to primary team's note. - Constitutional Vitals: Vital Signs Temp Pulse Resp BP Pulse Ox 97.4 F L 66 20 130/80 94 01/01/21 10:05 01/01/21 10:05 01/01/21 11:18 01/01/21 10:05 01/01/21 10:05 Temperature -Last 24 Hours Temperature 97.4 F Temperature 98.4 F Temperature 97.6 F Results - Labs CBC & Chem 7: 01/01/21 06:38 01/01/21 06:38 Labs: Abnormal lab results 12/31/20 12/31/20 12/31/20 Range/Units 16:59 16:59 17:04 Lymph % (Auto) 7.5 L (13.4-35.0) % Lymph # (Auto) 0.7 L (1.2-5.4) K/mm3 Seg Neutrophils % 86.4 H (40.0-70.0) % Seg Neuts % (Manual) (40.0-70.0) % Lymphocytes % (Manual) (13.4-35.0) % Seg Neutrophils # 8.6 H (1.8-7.7) K/mm3 Lymphocytes # (Manual) (1.2-5.4) K/mm3 D-Dimer (0-234) ng/mlDDU Sodium 132 L (137-145) mmol/L Chloride 91.6 L (98-107) mmol/L Glucose 326 H (75-100) mg/dL POC Glucose (70-105) mg/dL Hemoglobin A1c (4-6) % Ferritin (30.0-300.0) ng/mL Lactate Dehydrogenase (91-180) units/L Total Creatine Kinase 378 H (55-170) units/L C-Reactive Protein (0.00-1.30) mg/dL Albumin 3.4 L (3.9-5) g/dL Lipase 64 H (13-60) units/L Coronavirus (PCR) (Negative) 12/31/20 12/31/20 12/31/20 Range/Units 21:51 21:51 21:51 Lymph % (Auto) (13.4-35.0) % Lymph # (Auto) (1.2-5.4) K/mm3 Seg Neutrophils % (40.0-70.0) % Seg Neuts % (Manual) (40.0-70.0) % Lymphocytes % (Manual) (13.4-35.0) % Seg Neutrophils # (1.8-7.7) K/mm3 Lymphocytes # (Manual) (1.2-5.4) K/mm3 D-Dimer 297.08 H (0-234) ng/mlDDU Sodium (137-145) mmol/L Chloride (98-107) mmol/L Glucose 273 H (75-100) mg/dL POC Glucose (70-105) mg/dL Hemoglobin A1c (4-6) % Ferritin 737.1 H (30.0-300.0) ng/mL Lactate Dehydrogenase 356 H (91-180) units/L Total Creatine Kinase 374 H (55-170) units/L C-Reactive Protein 32.00 H (0.00-1.30) mg/dL Albumin (3.9-5) g/dL Lipase (13-60) units/L Coronavirus (PCR) (Negative) 01/01/21 01/01/21 01/01/21 Range/Units 00:55 06:38 06:38 Lymph % (Auto) (13.4-35.0) % Lymph # (Auto) (1.2-5.4) K/mm3 Seg Neutrophils % (40.0-70.0) % Seg Neuts % (Manual) 87.0 H (40.0-70.0) % Lymphocytes % (Manual) 5.0 L (13.4-35.0) % Seg Neutrophils # (1.8-7.7) K/mm3 Lymphocytes # (Manual) 0.4 L (1.2-5.4) K/mm3 D-Dimer (0-234) ng/mlDDU Sodium 134 L (137-145) mmol/L Chloride 94.0 L (98-107) mmol/L Glucose 353 H (75-100) mg/dL POC Glucose 322 H (70-105) mg/dL Hemoglobin A1c (4-6) % Ferritin (30.0-300.0) ng/mL Lactate Dehydrogenase (91-180) units/L Total Creatine Kinase (55-170) units/L C-Reactive Protein (0.00-1.30) mg/dL Albumin (3.9-5) g/dL Lipase (13-60) units/L Coronavirus (PCR) (Negative) 01/01/21 01/01/21 01/01/21 Range/Units 06:38 07:43 10:54 Lymph % (Auto) (13.4-35.0) % Lymph # (Auto) (1.2-5.4) K/mm3 Seg Neutrophils % (40.0-70.0) % Seg Neuts % (Manual) (40.0-70.0) % Lymphocytes % (Manual) (13.4-35.0) % Seg Neutrophils # (1.8-7.7) K/mm3 Lymphocytes # (Manual) (1.2-5.4) K/mm3 D-Dimer (0-234) ng/mlDDU Sodium (137-145) mmol/L Chloride (98-107) mmol/L Glucose (75-100) mg/dL POC Glucose 342 H 378 H (70-105) mg/dL Hemoglobin A1c 12.2 H (4-6) % Ferritin (30.0-300.0) ng/mL Lactate Dehydrogenase (91-180) units/L Total Creatine Kinase (55-170) units/L C-Reactive Protein (0.00-1.30) mg/dL Albumin (3.9-5) g/dL Lipase (13-60) units/L Coronavirus (PCR) (Negative) 01/01/21 01/01/21 Range/Units 16:31 Unknown Lymph % (Auto) (13.4-35.0) % Lymph # (Auto) (1.2-5.4) K/mm3 Seg Neutrophils % (40.0-70.0) % Seg Neuts % (Manual) (40.0-70.0) % Lymphocytes % (Manual) (13.4-35.0) % Seg Neutrophils # (1.8-7.7) K/mm3 Lymphocytes # (Manual) (1.2-5.4) K/mm3 D-Dimer (0-234) ng/mlDDU Sodium (137-145) mmol/L Chloride (98-107) mmol/L Glucose (75-100) mg/dL POC Glucose 327 H (70-105) mg/dL Hemoglobin A1c (4-6) % Ferritin (30.0-300.0) ng/mL Lactate Dehydrogenase (91-180) units/L Total Creatine Kinase (55-170) units/L C-Reactive Protein (0.00-1.30) mg/dL Albumin (3.9-5) g/dL Lipase (13-60) units/L Coronavirus (PCR) Positive A (Negative) Assessment and Plan Cultures: Blood culture no growth so far Covid PCR: Positive A/P: 65-year-old male past medical history obesity, sleep apnea, hypertension a dmitted with COVID-19 #COVID-19 pneumonia: Patient presented with nearly 3 weeks of symptoms. Infl ammatory markers elevated. Symptoms began nearly 2 weeks prior to receiving second dose of COVID-19 vaccine #Acute hypoxemic respiratory failure: Likely secondary to COVID-19 infection. Currently on 3L NC #Obesity Recs: -Currently on remdesivir, continue to complete 5 days. Likely minimal benefit given prolonged time since onset of symptoms. -Dexamethasone 6 mg IV/PO daily for 10 days -Obtain q48-72h inflammatory markers - ferritin, Ddimer, CRP, LDH -Stop antibiotics of normal procalcitonin -Anticoagulation per hospital protocol -Proning as able Thank you for the consult, we will continue to follow. MD Ata [facility] O: [phone] F: [phone]
[2021-01-01 17:58] LABS: Alanine Aminotransferase 33 units/L (7-56); Albumin 3.2 g/dL (3.9-5); BUN/Creatinine Ratio 21; Blood Urea Nitrogen 23 mg/dL (9-20); Calcium 8.8 mg/dL (8.4-10.2); Hemolysis Index 9
[2021-01-01] MEDS: SODIUM CHLORIDE 0.9% 50 ML IVPB IV SCH (21:09)
[2021-01-02] MEDS ORDERED: ZOLPIDEM 5 MG TAB PO ONE (00:10)
[2021-01-02] MEDS: HEPARIN 5,000 UNIT/1 ML VIAL SUB-Q SCH ×3 (05:48→21:23)
[2021-01-02] MEDS: FUROSEMIDE 40 MG/4 ML INJ IV SCH ×2 (05:48→18:43)
[2021-01-02] MEDS: INSULIN LISPRO 100 UNIT/ML SUB-Q SCH ×4 (07:30→23:01)
[2021-01-02 08:13] LABS: Alanine Aminotransferase 30 units/L (7-56); BUN/Creatinine Ratio 21; Blood Urea Nitrogen 27 mg/dL (9-20); Calcium 8.6 mg/dL (8.4-10.2); Hemolysis Index 0
[2021-01-02] MEDS: INSULIN NPH/REGULAR 70/30 INJ SUB-Q SCH ×2 (08:26→16:30)
[2021-01-02] MEDS: PANTOPRAZOLE 40 MG TAB PO SCH (08:27)
[2021-01-02] MEDS: dexAMETHasone 4 MG/ML VIAL IV SCH ×2 (08:27→18:40)
--- NOTE | 2021-01-02 11:04 | Progress Note ---
Assessment and Plan Assessment and plan: --COVID-19 infection; COVID-19 PCR positive on 01/01/2021 Current Visit: Yes Status: Acute Oxygen via nasal cannula 3 L/min. Contact and droplet isolation, dexamethasone 6 mg IV daily. Remdesivir, follow inflammatory markers Prone positioning as tolerated Home O2 evaluation at discharge DC antibiotics, procalcitonin levels low ID recommendations noted and appreciated -- Acute CHF[CHF on chest x-ray] Current Visit: Yes Status: Acute Patient has no history of CHF in the past , IV diuretics Fluid restriction , input output monitoring , echocardiogram for LV function ejection fraction Low-sodium diet , cardiology consult if needed --Acute respiratory failure with hypoxia Current Visit: Yes Status: Acute Requiring supplemental oxygen 3lt NC. Treat the underlying cause Empiric antibiotics, home oxygen evaluation at discharge --Obesity BMI 36.0-36.9,adult Current Visit: Yes Status: Acute Patient needs dietary modification, exercise as tolerated and weight reduction When medically stable -- Hyperglycemia Current Visit: Yes Status: Acute Accu-Chek sliding scale coverage ADA diet Check A1c -- DVT prophylaxis Current Visit: Yes Status: Acute Plan to address problem: Heparin 5000 units subcu every 8 hours. We will closely monitor the patient and adjust the management as needed Plan of care reviewed with the patient and her nurse 01/01/2021; follow-up horn PCR test Continue isolation 01/02/2021; COVID-19 positive Continue dexamethasone, remdesivir, prone position Hypoxic requiring 2 to 3 L of nasal cannula oxygen ID recommendations noted and appreciated History Interval history: I have seen and examined the patient at the bedside this morning Patient's chart and medications reviewed Isolation precautions PPE protocol strictly followed per COVID-19 guidelines Hospitalist Physical - Constitutional Vitals: Temp Pulse Resp BP Pulse Ox 97.4 F L 69 16 142/79 91 01/02/21 04:04 01/02/21 04:04 01/02/21 04:04 01/02/21 04:04 01/02/21 04:04 General appearance: Present: mild distress, well-nourished, obese - EENT Eyes: Present: PERRL, EOM intact - Neck Neck: Present: supple, normal ROM - Respiratory Respiratory effort: normal Respiratory: bilateral: diminished, rhonchi, negative: rales, wheezing - Cardiovascular Rhythm: regular Heart Sounds: Present: S1 & S2 - Extremities Extremities: no ischemia, No edema - Abdominal General gastrointestinal: soft, non-tender, non-distended, normal bowel sounds - Integumentary Integumentary: Present: clear, warm - Psychiatric Psychiatric: appropriate mood/affect, cooperative - Neurologic Neurologic: CNII-XII intact, moves all extremities HEART Score - HEART Score Troponin: Troponin T < 0.010 ng/mL (0.00-0.029) 12/31/20 21:51 Results - Labs CBC & Chem 7: 01/01/21 06:38 01/02/21 07:07 Labs: Laboratory Last Values WBC 8.0 K/mm3 (4.5-11.0) 01/01/21 06:38 RBC 4.17 M/mm3 (3.65-5.03) 01/01/21 06:38 Hgb 12.3 gm/dl (11.8-15.2) 01/01/21 06:38 Hct 36.1 % (35.5-45.6) 01/01/21 06:38 MCV 86 fl (84-94) 01/01/21 06:38 MCH 30 pg (28-32) 01/01/21 06:38 MCHC 34 % (32-34) 01/01/21 06:38 RDW 13.3 % (13.2-15.2) 01/01/21 06:38 Plt Count 190 K/mm3 (140-440) 01/01/21 06:38 Lymph % (Auto) 7.5 % (13.4-35.0) L 12/31/20 16:59 [place] % (Auto) 5.7 % (0.0-7.3) 12/31/20 16:59 Eos % (Auto) 0.0 % (0.0-4.3) 12/31/20 16:59 Baso % (Auto) 0.4 % (0.0-1.8) 12/31/20 16:59 Lymph # (Auto) 0.7 K/mm3 (1.2-5.4) L 12/31/20 16:59 [place] # (Auto) 0.6 K/mm3 (0.0-0.8) 12/31/20 16:59 Eos # (Auto) 0.0 K/mm3 (0.0-0.4) 12/31/20 16:59 Baso # (Auto) 0.0 K/mm3 (0.0-0.1) 12/31/20 16:59 Add Manual Diff Complete 01/01/21 06:38 Total Counted 100 01/01/21 06:38 Seg 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 01/01/21 06:38 Seg Neuts % (Manual) 87.0 % (40.0-70.0) H 01/01/21 06:38 Band Neutrophils % 5.0 % 01/01/21 06:38 Lymphocytes % (Manual) 5.0 % (13.4-35.0) L 01/01/21 06:38 Monocytes % (Manual) 2.0 % (0.0-7.3) 01/01/21 06:38 Metamyelocytes % 1.0 % 01/01/21 06:38 Nucleated RBC % Not Reportable 01/01/21 06:38 Seg Neutrophils # 8.6 K/mm3 (1.8-7.7) H 12/31/20 16:59 Seg Neutrophils # Man 7.0 K/mm3 (1.8-7.7) 01/01/21 06:38 Band Neutrophils # 0.4 K/mm3 01/01/21 06:38 Lymphocytes # (Manual) 0.4 K/mm3 (1.2-5.4) L 01/01/21 06:38 Abs React Lymphs (Man) 0.0 K/mm3 01/01/21 06:38 Monocytes # (Manual) 0.2 K/mm3 (0.0-0.8) 01/01/21 06:38 Eosinophils # (Manual) 0.0 K/mm3 (0.0-0.4) 01/01/21 06:38 Basophils # (Manual) 0.0 K/mm3 (0.0-0.1) 01/01/21 06:38 Metamyelocytes # 0.1 K/mm3 01/01/21 06:38 Myelocytes # 0.0 K/mm3 01/01/21 06:38 Promyelocytes # 0.0 K/mm3 01/01/21 06:38 Blast Cells # 0.0 K/mm3 01/01/21 06:38 WBC Morphology Not Reportable 01/01/21 06:38 WBC Morphology TNR 01/01/21 06:38 Hypersegmented Neuts Not Reportable 01/01/21 06:38 Hyposegmented Neuts Not Reportable 01/01/21 06:38 Hypogranular Neuts Not Reportable 01/01/21 06:38 Smudge Cells Not Reportable 01/01/21 06:38 Toxic Granulation Not Reportable 01/01/21 06:38 Toxic Vacuolation Not Reportable 01/01/21 06:38 Dohle Bodies Not Reportable 01/01/21 06:38 Pelger-Huet Anomaly Not Reportable 01/01/21 06:38 Ronnell Rods Not Reportable 01/01/21 06:38 Platelet Estimate Consistent w auto 01/01/21 06:38 Clumped Platelets Not Reportable 01/01/21 06:38 Plt Clumps, EDTA Not Reportable 01/01/21 06:38 Large Platelets Not Reportable 01/01/21 06:38 Giant Platelets Not Reportable 01/01/21 06:38 Platelet Satelliting Not Reportable 01/01/21 06:38 Plt Morphology Comment Not Reportable 01/01/21 06:38 RBC Morphology Normal 01/01/21 06:38 Dimorphic RBCs Not Reportable 01/01/21 06:38 Polychromasia Not Reportable 01/01/21 06:38 Hypochromasia Not Reportable 01/01/21 06:38 Poikilocytosis Not Reportable 01/01/21 06:38 Anisocytosis Not Reportable 01/01/21 06:38 Microcytosis Not Reportable 01/01/21 06:38 Macrocytosis Not Reportable 01/01/21 06:38 Spherocytes Not Reportable 01/01/21 06:38 Pappenheimer Bodies Not Reportable 01/01/21 06:38 Sickle Cells Not Reportable 01/01/21 06:38 Target Cells Not Reportable 01/01/21 06:38 Tear Drop Cells Not Reportable 01/01/21 06:38 Ovalocytes Not Reportable 01/01/21 06:38 Helmet Cells Not Reportable 01/01/21 06:38 Castellano-Adena Bodies Not Reportable 01/01/21 06:38 [place] Rings Not Reportable 01/01/21 06:38 Grace Cells Not Reportable 01/01/21 06:38 Bite Cells Not Reportable 01/01/21 06:38 Crenated Cell Not Reportable 01/01/21 06:38 Elliptocytes Not Reportable 01/01/21 06:38 Acanthocytes (Spur) Not Reportable 01/01/21 06:38 Rouleaux Not Reportable 01/01/21 06:38 Hemoglobin C Crystals Not Reportable 01/01/21 06:38 Schistocytes Not Reportable 01/01/21 06:38 Malaria parasites Not Reportable 01/01/21 06:38 Tseve Bodies Not Reportable 01/01/21 06:38 Hem Pathologist Commnt No 01/01/21 06:38 D-Dimer 297.08 ng/mlDDU (0-234) H 12/31/20 21:51 Sodium 133 mmol/L (137-145) L 01/02/21 07:07 Potassium 4.3 mmol/L (3.6-5.0) 01/02/21 07:07 Chloride 93.6 mmol/L (98-107) L 01/02/21 07:07 Carbon Dioxide 26 mmol/L (22-30) 01/02/21 07:07 Anion Gap 18 mmol/L 01/02/21 07:07 BUN 27 mg/dL (9-20) H 01/02/21 07:07 Creatinine 1.3 mg/dL (0.8-1.3) 01/02/21 07:07 Estimated GFR > 60 ml/min 01/02/21 07:07 BUN/Creatinine Ratio 21 % 01/02/21 07:07 Glucose 360 mg/dL (75-100) H 01/02/21 07:07 POC Glucose 381 mg/dL (70-105) H 01/02/21 07:46 Hemoglobin A1c 12.2 % (4-6) H 01/01/21 06:38 Lactic Acid 1.40 mmol/L (0.7-2.0) 12/31/20 21:51 Calcium 8.6 mg/dL (8.4-10.2) 01/02/21 07:07 Magnesium 2.20 mg/dL (1.7-2.3) 12/31/20 21:51 Ferritin 737.1 ng/mL (30.0-300.0) H 12/31/20 21:51 Total Bilirubin 0.30 mg/dL (0.1-1.2) 01/02/21 07:07 AST 25 units/L (5-40) 01/02/21 07:07 ALT 30 units/L (7-56) 01/02/21 07:07 Alkaline Phosphatase 84 units/L (35-129) 01/02/21 07:07 Lactate Dehydrogenase 356 units/L (91-180) H 12/31/20 21:51 Total Creatine Kinase 374 units/L (55-170) H 12/31/20 21:51 Troponin T < 0.010 ng/mL (0.00-0.029) 12/31/20 21:51 C-Reactive Protein 32.00 mg/dL (0.00-1.30) H 12/31/20 21:51 NT-Pro-B Natriuret Pep 64.03 pg/mL (0-900) 12/31/20 21:51 Total Protein 7.4 g/dL (6.3-8.2) 01/02/21 07:07 Albumin 3.0 g/dL (3.9-5) L 01/02/21 07:07 Albumin/Globulin Ratio 0.7 % 01/02/21 07:07 Lipase 64 units/L (13-60) H 12/31/20 16:59 Procalcitonin 0.25 ng/mL (<0.15) 12/31/20 21:51 Urine Color Yellow (Yellow) 12/31/20 16:39 Urine Turbidity Clear (Clear) 12/31/20 16:39 Urine pH 5.0 (5.0-7.0) 12/31/20 16:39 Ur Specific [place] 1.029 (1.003-1.030) 12/31/20 16:39 Urine Protein 100 mg/dl mg/dL (Negative) 12/31/20 16:39 Urine Glucose (UA) >=500 mg/dL (Negative) 12/31/20 16:39 Urine Ketones 20 mg/dL (Negative) 12/31/20 16:39 Urine Blood Sm (Negative) 12/31/20 16:39 Urine Nitrite Neg (Negative) 12/31/20 16:39 Ur Reducing Substances Not Reportable 12/31/20 16:39 Urine Bilirubin Neg (Negative) 12/31/20 16:39 Urine Ictotest Not Reportable 12/31/20 16:39 Urine Urobilinogen < 2.0 mg/dL (<2.0) 12/31/20 16:39 Ur Leukocyte Esterase Neg (Negative) 12/31/20 16:39 Urine WBC (Auto) 1.0 /HPF (0.0-6.0) 12/31/20 16:39 Urine RBC (Auto) 2.0 /HPF (0.0-6.0) 12/31/20 16:39 U Epithel Cells (Auto) < 1.0 /HPF (0-13.0) 12/31/20 16:39 Urine Mucus Few /HPF 12/31/20 16:39 Coronavirus (PCR) Positive (Negative) A 01/01/21 Unknown Microbiology: Microbiology 12/31/20 21:45 Peripheral/Venous Blood Culture - Preliminary NO GROWTH AFTER 24 HOURS 12/31/20 21:51 Peripheral/Venous Blood Culture - Preliminary NO GROWTH AFTER 24 HOURS Zafar/IV: Voiding Method Urinal Active Medications - Current Medications Current Medications: Generic Name Dose Route Start Last Admin Trade Name Freq PRN Reason Stop Dose Admin Hydrocodone Bitart/Acetaminophen 1 each 12/31/20 21:54 01/01/21 08:01 Hydrocodone/Acetaminophen 7.5-325mg Tab PO 1 each Q6HR PRN Administration Pain, Moderate (4-6) Dexamethasone 6 mg 01/01/21 10:00 01/02/21 08:27 Dexamethasone 4 Mg/Ml Vial IV 01/09/21 10:01 6 mg DAILY RENÉ Administration Dextrose 50 ml 12/31/20 21:54 Dextrose 50% In Water (25gm) 50 Ml Syringe IV Q30MIN PRN Hypoglycemia Protocol Furosemide 40 mg 01/01/21 06:00 01/02/21 05:48 Furosemide 40 Mg/4 Ml Inj IV 40 mg BID@0600,1800 RENÉ Administration Heparin Sodium (Porcine) 5,000 unit 12/31/20 22:00 01/02/21 05:48 Heparin 5,000 Unit/1 Ml Vial SUB-Q 5,000 unit Q8HR RENÉ Administration Hydralazine HCl 10 mg 12/31/20 21:51 Hydralazine 20 Mg/1 Ml Inj IV Q6H PRN htn REMDESIVIR 100 mg/ Sodium 250 mls @ 500 mls/hr 01/02/21 21:00 Chloride IV 01/05/21 21:29 Q24HR@2100 RENÉ Insulin Human Isoph/Insulin Regular 38 unit 05/24/21 10:47 Insulin Nph/Regular 70/30 Inj SUB-Q BIDDIAB RENÉ Insulin Human Lispro 0 unit 12/31/20 22:00 01/02/21 07:30 Insulin Lispro 100 Unit/Ml SUB-Q 8 unit ACHS RENÉ Administration Protocol Nitroglycerin 0.4 mg 12/31/20 21:47 Nitroglycerin 0.4 Mg Tab Subl SL .Q5MIN PRN Chest Pain Pantoprazole Sodium 40 mg 01/01/21 07:30 01/02/21 08:27 Pantoprazole 40 Mg Tab PO 40 mg QDAC RENÉ Administration Sodium Chloride 50 ml 01/01/21 21:00 01/01/21 21:09 Sodium Chloride 0.9% 50 Ml Ivpb IV 01/05/21 21:01 50 ml Q24HR@2100 [facility] Administration Nutrition/Malnutrition Assess - Dietary Evaluation Nutrition/Malnutrition Findings: Nutrition Notes Start: 01/01/21 10:09 Freq: Status: Active Protocol: Document 01/01/21 10:09 LP (Rec: 01/01/21 10:11 LP [email or web address]) Nutrition Notes Need for Assessment generated from: MD Order Initial or Follow up Brief Note Current Diagnosis Heart Failure,Respiratory Failure Other Pertinent Diagnosis Suspected COVID Current Diet Cardiac Labs/Tests Na 134 BG 353 Pertinent Medications Lasix Decadron Subjective/Other Information Consult for diet education. Pt did not answer phone. Nutrition Intervention Follow-Up By: 01/02/21 Additional Comments Follow for diet education
--- NOTE | 2021-01-02 12:08 | Progress Note ---
Assessment and Plan Cultures: Blood culture no growth so far Covid PCR: Positive A/P: 65-year-old male past medical history obesity, sleep apnea, hypertension admitted with COVID-19 #COVID-19 pneumonia: Patient presented with nearly 3 weeks of symptoms. Inflammatory markers elevated. Symptoms began nearly 2 weeks prior to receiving second dose of COVID-19 vaccine. #Acute hypoxemic respiratory failure: Likely secondary to COVID-19 infection. Currently on 3L NC #Obesity Recs: -Continue remdesivir for total of 5 days -Continue dexamethasone 6 mg IV/PO daily for 10 days -Obtain q48-72h inflammatory markers - ferritin, Ddimer, CRP, LDH -Anticoagulation per hospital protocol -Proning as able Elmo Beatty MD, FACP [facility] ([facility] O: [phone] F: [phone] Subjective Date of service: 01/02/21 Interval history: No fever. Stable on 2 L oxygen by nasal cannula. Objective - Exam Narrative Exam: Physical Exam (reviewed in chart to minimize risk of transmission) Constitutional: deferred Head, Ears, Nose: deferred Eyes: deferred Neck: deferred Oral: deferred Cardiovascular: deferred Respiratory: deferred GI: deferred Musculoskeletal: deferred Skin: deferred Hem/Lymphatic: deferred Psych: deferred Neurological: deferred - Constitutional Vitals: Vital Signs Temp Pulse Resp BP Pulse Ox 97.3 F L 74 20 129/77 94 01/02/21 11:50 01/02/21 11:50 01/02/21 11:50 01/02/21 11:50 01/02/21 11:50 Temperature -Last 24 Hours Temperature 97.3 F Temperature 97.4 F Temperature 97.5 F Temperature 98.1 F - Labs CBC & Chem 7: 01/01/21 06:38 01/02/21 07:07 Labs: Abnormal lab results 01/01/21 01/01/21 01/01/21 Range/Units 06:38 06:38 07:43 Seg Neuts % (Manual) 87.0 H (40.0-70.0) % Lymphocytes % (Manual) 5.0 L (13.4-35.0) % Lymphocytes # (Manual) 0.4 L (1.2-5.4) K/mm3 Sodium (137-145) mmol/L Chloride (98-107) mmol/L BUN (9-20) mg/dL Glucose (75-100) mg/dL POC Glucose 342 H (70-105) mg/dL Hemoglobin A1c 12.2 H (4-6) % Albumin (3.9-5) g/dL Coronavirus (PCR) (Negative) 01/01/21 01/01/21 01/01/21 Range/Units 10:54 16:31 17:23 Seg Neuts % (Manual) (40.0-70.0) % Lymphocytes % (Manual) (13.4-35.0) % Lymphocytes # (Manual) (1.2-5.4) K/mm3 Sodium 130 L (137-145) mmol/L Chloride 91.9 L (98-107) mmol/L BUN 23 H (9-20) mg/dL Glucose 404 H (75-100) mg/dL POC Glucose 378 H 327 H (70-105) mg/dL Hemoglobin A1c (4-6) % Albumin 3.2 L (3.9-5) g/dL Coronavirus (PCR) (Negative) 01/01/21 01/01/21 01/02/21 Range/Units 21:29 Unknown 07:07 Seg Neuts % (Manual) (40.0-70.0) % Lymphocytes % (Manual) (13.4-35.0) % Lymphocytes # (Manual) (1.2-5.4) K/mm3 Sodium 133 L (137-145) mmol/L Chloride 93.6 L (98-107) mmol/L BUN 27 H (9-20) mg/dL Glucose 360 H (75-100) mg/dL POC Glucose 404 H (70-105) mg/dL Hemoglobin A1c (4-6) % Albumin 3.0 L (3.9-5) g/dL Coronavirus (PCR) Positive A (Negative) 01/02/21 01/02/21 Range/Units 07:46 11:21 Seg Neuts % (Manual) (40.0-70.0) % Lymphocytes % (Manual) (13.4-35.0) % Lymphocytes # (Manual) (1.2-5.4) K/mm3 Sodium (137-145) mmol/L Chloride (98-107) mmol/L BUN (9-20) mg/dL Glucose (75-100) mg/dL POC Glucose 381 H 339 H (70-105) mg/dL Hemoglobin A1c (4-6) % Albumin (3.9-5) g/dL Coronavirus (PCR) (Negative)
[2021-01-02 16:37] LABS: ABG Base Excess 0.6 mmol/L (-2.0-3.0); ABG HCO3 24.8 mmol/L (20.0-26.0); ABG Methemoglobin 0.5 % (0.0-1.5); ABG Oxygen Saturation 92.1 % (95.0-99.0); ABG PCO2 38.7 mm Hg; ABG PH 7.425 pH Units (7.350-7.450); ABG PO2 61.6 mm Hg (80.0-90.0)
[2021-01-02] MEDS: SODIUM CHLORIDE 0.9% 50 ML IVPB IV SCH (21:23)
[2021-01-02] MEDS: REMDESIVIR 100 MG in SODIUM CHLORIDE 0.9% 250ML 250 ML IV SCH (21:23)
[2021-01-03] MEDS: HEPARIN 5,000 UNIT/1 ML VIAL SUB-Q SCH ×3 (05:36→21:24)
[2021-01-03] MEDS: FUROSEMIDE 40 MG/4 ML INJ IV SCH ×2 (05:37→18:56)
[2021-01-03 06:45] LABS: Alanine Aminotransferase 24 units/L (7-56); Albumin 3.1 g/dL (3.9-5); BUN/Creatinine Ratio 27; Blood Urea Nitrogen 30 mg/dL (9-20); Calcium 8.6 mg/dL (8.4-10.2); Hemolysis Index 3
[2021-01-03] MEDS: INSULIN LISPRO 100 UNIT/ML SUB-Q SCH ×4 (07:30→22:22)
[2021-01-03] MEDS: PANTOPRAZOLE 40 MG TAB PO SCH (08:05)
[2021-01-03] MEDS: INSULIN NPH/REGULAR 70/30 INJ SUB-Q SCH ×2 (08:05→16:25)
--- NOTE | 2021-01-03 09:34 | Progress Note ---
Assessment and Plan Assessment and plan: --COVID-19 infection; COVID-19 PCR positive on 01/01/2021 Current Visit: Yes Status: Acute Oxygen via nasal cannula 3 L/min. /This morning patient is on room air O2 sats 91%[oxygen standby] Contact and droplet isolation, dexamethasone 6 mg IV daily. Remdesivir, follow inflammatory markers Prone positioning as tolerated Home O2 evaluation at discharge Antibiotics DC'd, procalcitonin low ID following -- Acute CHF[CHF on chest x-ray] Current Visit: Yes Status: Acute Patient has no history of CHF in the past , IV diuretics Fluid restriction , input output monitoring , echocardiogram for LV function ejection fraction Low-sodium diet , cardiology consult if needed --Acute respiratory failure with hypoxia Current Visit: Yes Status: Acute Requiring supplemental oxygen 3lt NC. Treat the underlying cause Empiric antibiotics, home oxygen evaluation at discharge --Obesity BMI 36.0-36.9,adult Current Visit: Yes Status: Acute Patient needs dietary modification, exercise as tolerated and weight reduction When medically stable -- Hyperglycemia Current Visit: Yes Status: Acute Accu-Chek sliding scale coverage ADA diet Check A1c -- DVT prophylaxis Current Visit: Yes Status: Acute Plan to address problem: Heparin 5000 units subcu every 8 hours. We will closely monitor the patient and adjust the management as needed Plan of care reviewed with the patient and her nurse 01/01/2021; follow-up horn PCR test Continue isolation 01/02/2021; COVID-19 positive Continue dexamethasone, remdesivir, prone position Hypoxic requiring 2 to 3 L of nasal cannula oxygen ID recommendations noted and appreciated 01/03/2021; patient feels better, no new complaints Saturating well on room air Continue steroids and remdesivir Home O2 evaluation at discharge History Interval history: I have seen and examined the patient at the bedside Isolation precautions PPE protocols strictly followed per COVID-19 guidelines Patient feels better saturating well on room air No new complaints, anxious to go home Vital signs noted Hospitalist Physical - Constitutional Vitals: Temp Pulse Resp BP Pulse Ox 97.7 F 64 16 121/73 91 01/03/21 05:11 01/03/21 05:11 01/03/21 05:11 01/03/21 05:11 01/03/21 09:05 General appearance: Present: no acute distress, well-nourished, obese - EENT Eyes: Present: PERRL, EOM intact - Neck Neck: Present: supple, normal ROM - Respiratory Respiratory effort: normal Respiratory: bilateral: diminished, rhonchi, negative: rales, wheezing - Cardiovascular Rhythm: regular Heart Sounds: Present: S1 & S2 - Extremities Extremities: no ischemia, No edema - Abdominal General gastrointestinal: soft, non-tender, non-distended, normal bowel sounds - Integumentary Integumentary: Present: clear, warm - Psychiatric Psychiatric: appropriate mood/affect, cooperative - Neurologic Neurologic: CNII-XII intact, moves all extremities HEART Score - HEART Score Troponin: Troponin T < 0.010 ng/mL (0.00-0.029) 12/31/20 21:51 Results - Labs CBC & Chem 7: 01/01/21 06:38 01/03/21 05:40 Labs: Laboratory Last Values WBC 8.0 K/mm3 (4.5-11.0) 01/01/21 06:38 RBC 4.17 M/mm3 (3.65-5.03) 01/01/21 06:38 Hgb 12.3 gm/dl (11.8-15.2) 01/01/21 06:38 Hct 36.1 % (35.5-45.6) 01/01/21 06:38 MCV 86 fl (84-94) 01/01/21 06:38 MCH 30 pg (28-32) 01/01/21 06:38 MCHC 34 % (32-34) 01/01/21 06:38 RDW 13.3 % (13.2-15.2) 01/01/21 06:38 Plt Count 190 K/mm3 (140-440) 01/01/21 06:38 Lymph % (Auto) 7.5 % (13.4-35.0) L 12/31/20 16:59 [place] % (Auto) 5.7 % (0.0-7.3) 12/31/20 16:59 Eos % (Auto) 0.0 % (0.0-4.3) 12/31/20 16:59 Baso % (Auto) 0.4 % (0.0-1.8) 12/31/20 16:59 Lymph # (Auto) 0.7 K/mm3 (1.2-5.4) L 12/31/20 16:59 [place] # (Auto) 0.6 K/mm3 (0.0-0.8) 12/31/20 16:59 Eos # (Auto) 0.0 K/mm3 (0.0-0.4) 12/31/20 16:59 Baso # (Auto) 0.0 K/mm3 (0.0-0.1) 12/31/20 16:59 Add Manual Diff Complete 01/01/21 06:38 Total Counted 100 01/01/21 06:38 Seg Neutrophils % Java Xml Developer 01/01/21 06:38 Seg Neuts % (Manual) 87.0 % (40.0-70.0) H 01/01/21 06:38 Band Neutrophils % 5.0 % 01/01/21 06:38 Lymphocytes % (Manual) 5.0 % (13.4-35.0) L 01/01/21 06:38 Monocytes % (Manual) 2.0 % (0.0-7.3) 01/01/21 06:38 Metamyelocytes % 1.0 % 01/01/21 06:38 Nucleated RBC % Not Reportable 01/01/21 06:38 Seg Neutrophils # 8.6 K/mm3 (1.8-7.7) H 12/31/20 16:59 Seg Neutrophils # Man 7.0 K/mm3 (1.8-7.7) 01/01/21 06:38 Band Neutrophils # 0.4 K/mm3 01/01/21 06:38 Lymphocytes # (Manual) 0.4 K/mm3 (1.2-5.4) L 01/01/21 06:38 Abs React Lymphs (Man) 0.0 K/mm3 01/01/21 06:38 Monocytes # (Manual) 0.2 K/mm3 (0.0-0.8) 01/01/21 06:38 Eosinophils # (Manual) 0.0 K/mm3 (0.0-0.4) 01/01/21 06:38 Basophils # (Manual) 0.0 K/mm3 (0.0-0.1) 01/01/21 06:38 Metamyelocytes # 0.1 K/mm3 01/01/21 06:38 Myelocytes # 0.0 K/mm3 01/01/21 06:38 Promyelocytes # 0.0 K/mm3 01/01/21 06:38 Blast Cells # 0.0 K/mm3 01/01/21 06:38 WBC Morphology Not Reportable 01/01/21 06:38 WBC Morphology TNR 01/01/21 06:38 Hypersegmented Neuts Not Reportable 01/01/21 06:38 Hyposegmented Neuts Not Reportable 01/01/21 06:38 Hypogranular Neuts Not Reportable 01/01/21 06:38 Smudge Cells Not Reportable 01/01/21 06:38 Toxic Granulation Not Reportable 01/01/21 06:38 Toxic Vacuolation Not Reportable 01/01/21 06:38 Dohle Bodies Not Reportable 01/01/21 06:38 Pelger-Huet Anomaly Not Reportable 01/01/21 06:38 Ronnell Rods Not Reportable 01/01/21 06:38 Platelet Estimate Consistent w auto 01/01/21 06:38 Clumped Platelets Not Reportable 01/01/21 06:38 Plt Clumps, EDTA Not Reportable 01/01/21 06:38 Large Platelets Not Reportable 01/01/21 06:38 Giant Platelets Not Reportable 01/01/21 06:38 Platelet Satelliting Not Reportable 01/01/21 06:38 Plt Morphology Comment Not Reportable 01/01/21 06:38 RBC Morphology Normal 01/01/21 06:38 Dimorphic RBCs Not Reportable 01/01/21 06:38 Polychromasia Not Reportable 01/01/21 06:38 Hypochromasia Not Reportable 01/01/21 06:38 Poikilocytosis Not Reportable 01/01/21 06:38 Anisocytosis Not Reportable 01/01/21 06:38 Microcytosis Not Reportable 01/01/21 06:38 Macrocytosis Not Reportable 01/01/21 06:38 Spherocytes Not Reportable 01/01/21 06:38 Pappenheimer Bodies Not Reportable 01/01/21 06:38 Sickle Cells Not Reportable 01/01/21 06:38 Target Cells Not Reportable 01/01/21 06:38 Tear Drop Cells Not Reportable 01/01/21 06:38 Ovalocytes Not Reportable 01/01/21 06:38 Helmet Cells Not Reportable 01/01/21 06:38 Castellano-Lannon Bodies Not Reportable 01/01/21 06:38 [place] Rings Not Reportable 01/01/21 06:38 Grace Cells Not Reportable 01/01/21 06:38 Bite Cells Not Reportable 01/01/21 06:38 Crenated Cell Not Reportable 01/01/21 06:38 Elliptocytes Not Reportable 01/01/21 06:38 Acanthocytes (Spur) Not Reportable 01/01/21 06:38 Rouleaux Not Reportable 01/01/21 06:38 Hemoglobin C Crystals Not Reportable 01/01/21 06:38 Schistocytes Not Reportable 01/01/21 06:38 Malaria parasites Not Reportable 01/01/21 06:38 Steve Bodies Not Reportable 01/01/21 06:38 Hem Pathologist Commnt No 01/01/21 06:38 D-Dimer 297.08 ng/mlDDU (0-234) H 12/31/20 21:51 ABG pH 7.425 pH Units (7.350-7.450) 01/02/21 16:20 ABG pCO2 38.7 mm Hg 01/02/21 16:20 ABG pO2 61.6 mm Hg (80.0-90.0) L 01/02/21 16:20 ABG HCO3 24.8 mmol/L (20.0-26.0) 01/02/21 16:20 ABG O2 Saturation 92.1 % (95.0-99.0) L 01/02/21 16:20 ABG O2 Content 22.7 (0.0-44) 01/02/21 16:20 ABG Base Excess 0.6 mmol/L (-2.0-3.0) 01/02/21 16:20 ABG Hemoglobin 17.9 gm/dl (14.0-18.0) 01/02/21 16:20 ABG Carboxyhemoglobin 1.3 % (0.0-5.0) 01/02/21 16:20 ABG Methemoglobin 0.5 % (0.0-1.5) 01/02/21 16:20 Oxyhemoglobin 90.4 % (95.0-99.0) L 01/02/21 16:20 FiO2 21 % 01/02/21 16:20 Sodium 136 mmol/L (137-145) L 01/03/21 05:40 Potassium 3.6 mmol/L (3.6-5.0) 01/03/21 05:40 Chloride 98.2 mmol/L (98-107) 01/03/21 05:40 Carbon Dioxide 28 mmol/L (22-30) 01/03/21 05:40 Anion Gap 13 mmol/L 01/03/21 05:40 BUN 30 mg/dL (9-20) H 01/03/21 05:40 Creatinine 1.1 mg/dL (0.8-1.3) 01/03/21 05:40 Estimated GFR > 60 ml/min 01/03/21 05:40 BUN/Creatinine Ratio 27 % 01/03/21 05:40 Glucose 191 mg/dL (75-100) H 01/03/21 05:40 POC Glucose 219 mg/dL (70-105) H 01/03/21 07:49 Hemoglobin A1c 12.2 % (4-6) H 01/01/21 06:38 Lactic Acid 1.40 mmol/L (0.7-2.0) 12/31/20 21:51 Calcium 8.6 mg/dL (8.4-10.2) 01/03/21 05:40 Magnesium 2.20 mg/dL (1.7-2.3) 12/31/20 21:51 Ferritin 737.1 ng/mL (30.0-300.0) H 12/31/20 21:51 Total Bilirubin 0.30 mg/dL (0.1-1.2) 01/03/21 05:40 AST 16 units/L (5-40) 01/03/21 05:40 ALT 24 units/L (7-56) 01/03/21 05:40 Alkaline Phosphatase 81 units/L (35-129) 01/03/21 05:40 Lactate Dehydrogenase 356 units/L (91-180) H 12/31/20 21:51 Total Creatine Kinase 374 units/L (55-170) H 12/31/20 21:51 Troponin T < 0.010 ng/mL (0.00-0.029) 12/31/20 21:51 C-Reactive Protein 32.00 mg/dL (0.00-1.30) H 12/31/20 21:51 NT-Pro-B Natriuret Pep 64.03 pg/mL (0-900) 12/31/20 21:51 Total Protein 6.9 g/dL (6.3-8.2) 01/03/21 05:40 Albumin 3.1 g/dL (3.9-5) L 01/03/21 05:40 Albumin/Globulin Ratio 0.8 % 01/03/21 05:40 Lipase 64 units/L (13-60) H 12/31/20 16:59 Procalcitonin 0.25 ng/mL (<0.15) 12/31/20 21:51 Urine Color Yellow (Yellow) 12/31/20 16:39 Urine Turbidity Clear (Clear) 12/31/20 16:39 Urine pH 5.0 (5.0-7.0) 12/31/20 16:39 Ur Specific [place] 1.029 (1.003-1.030) 12/31/20 16:39 Urine Protein 100 mg/dl mg/dL (Negative) 12/31/20 16:39 Urine Glucose (UA) >=500 mg/dL (Negative) 12/31/20 16:39 Urine Ketones 20 mg/dL (Negative) 12/31/20 16:39 Urine Blood Sm (Negative) 12/31/20 16:39 Urine Nitrite Neg (Negative) 12/31/20 16:39 Ur Reducing Substances Not Reportable 12/31/20 16:39 Urine Bilirubin Neg (Negative) 12/31/20 16:39 Urine Ictotest Not Reportable 12/31/20 16:39 Urine Urobilinogen < 2.0 mg/dL (<2.0) 12/31/20 16:39 Ur Leukocyte Esterase Neg (Negative) 12/31/20 16:39 Urine WBC (Auto) 1.0 /HPF (0.0-6.0) 12/31/20 16:39 Urine RBC (Auto) 2.0 /HPF (0.0-6.0) 12/31/20 16:39 U Epithel Cells (Auto) < 1.0 /HPF (0-13.0) 12/31/20 16:39 Urine Mucus Few /HPF 12/31/20 16:39 Coronavirus (PCR) Positive (Negative) A 01/01/21 Unknown Microbiology: Microbiology 12/31/20 21:45 Peripheral/Venous Blood Culture - Preliminary NO GROWTH AFTER 48 HOURS 12/31/20 21:51 Peripheral/Venous Blood Culture - Preliminary NO GROWTH AFTER 48 HOURS Zafar/IV: Voiding Method Toilet Active Medications - Current Medications Current Medications: Generic Name Dose Route Start Last Admin Trade Name Freq PRN Reason Stop Dose Admin Hydrocodone Bitart/Acetaminophen 1 each 12/31/20 21:54 01/01/21 08:01 Hydrocodone/Acetaminophen 7.5-325mg Tab PO 1 each Q6HR PRN Administration Pain, Moderate (4-6) Dexamethasone 6 mg 01/01/21 10:00 01/02/21 18:40 Dexamethasone 4 Mg/Ml Vial IV 01/09/21 10:01 Not Given DAILY RENÉ Dextrose 50 ml 12/31/20 21:54 Dextrose 50% In Water (25gm) 50 Ml Syringe IV Q30MIN PRN Hypoglycemia Protocol Furosemide 40 mg 01/01/21 06:00 01/03/21 05:37 Furosemide 40 Mg/4 Ml Inj IV 40 mg BID@0600,1800 RENÉ Administration Heparin Sodium (Porcine) 5,000 unit 12/31/20 22:00 01/03/21 05:36 Heparin 5,000 Unit/1 Ml Vial SUB-Q 5,000 unit Q8HR RENÉ Administration Hydralazine HCl 10 mg 12/31/20 21:51 Hydralazine 20 Mg/1 Ml Inj IV Q6H PRN htn REMDESIVIR 100 mg/ Sodium 250 mls @ 500 mls/hr 01/02/21 21:00 01/02/21 21:23 Chloride IV 01/05/21 21:29 500 mls/hr Q24HR@2100 ERNÉ Administration Insulin Human Isoph/Insulin Regular 38 unit 01/02/21 10:47 01/03/21 08:05 Insulin Nph/Regular 70/30 Inj SUB-Q 38 unit BIDDIAB RENÉ Administration Insulin Human Lispro 0 unit 12/31/20 22:00 01/03/21 07:30 Insulin Lispro 100 Unit/Ml SUB-Q 3 unit ACHS RENÉ Administration Protocol Nitroglycerin 0.4 mg 12/31/20 21:47 Nitroglycerin 0.4 Mg Tab Subl SL .Q5MIN PRN Chest Pain Pantoprazole Sodium 40 mg 01/01/21 07:30 01/03/21 08:05 Pantoprazole 40 Mg Tab PO 40 mg QDAC RENÉ Administration Sodium Chloride 50 ml 01/01/21 21:00 01/02/21 21:23 Sodium Chloride 0.9% 50 Ml Ivpb IV 01/05/21 21:01 50 ml Q24HR@2100 RENÉ Administration Nutrition/Malnutrition Assess - Dietary Evaluation Nutrition/Malnutrition Findings: Nutrition Notes Start: 01/01/21 10:09 Freq: Status: Active Protocol: Document 01/02/21 13:22 AL (Rec: 01/02/21 13:24 AL [id number]) Co-Sign 01/02/21 13:22 LP Nutrition Notes Initial or Follow up Brief Note Current Diagnosis Heart Failure,Respiratory Failure Other Pertinent Diagnosis COVID (+) Current Diet Cardiac Subjective/Other Information Consult for diet education. Pt did not answer the phone when called. Nutrition Intervention Follow-Up By: 01/04/21 Additional Comments Follow for diet education
--- NOTE | 2021-01-03 10:18 | Electrocardiograph Report ---
[facility] Test Date: 2020-12-31 Test Time: 16:55:52 Pat Name: RENE LANDRUM Department: Room: A356 1 Gender: M Chemical Comp[employer]: ROJAS : 1955 Requested By: ROLY SAUER Order Number: [id number] Reading MD: Dheeraj Mendoza Measurements Intervals [place] Rate: 95 P: 61 MT: 192 QRS: -10 QRSD: 90 T: 123 QT: 338 QTc: 425 Interpretive Statements Sinus rhythm Probable left atrial enlargement Probable LVH with secondary repol abnrm No previous ECG available for comparison Electronically Signed On 01-03-2021 10:17:59 EDT by Dheeraj Mendoza
[2021-01-03] MEDS: dexAMETHasone 4 MG/ML VIAL IV SCH (10:53)
--- NOTE | 2021-01-03 14:47 | Progress Note ---
Assessment and Plan Cultures: Blood culture no growth so far Covid PCR: Positive A/P: 65-year-old male past medical history obesity, sleep apnea, hypertension admitted with COVID-19 #COVID-19 pneumonia: Patient presented with nearly 3 weeks of symptoms. Inflammatory markers elevated. Symptoms began nearly 2 weeks prior to receiving second dose of COVID-19 vaccine. #Acute hypoxemic respiratory failure: Likely secondary to COVID-19 infection. improving. #Obesity Recs: -Continue remdesivir -Continue dexamethasone 6 mg IV/PO daily for 10 days -Obtain q48-72h inflammatory markers - ferritin, Ddimer, CRP, LDH -Anticoagulation per hospital protocol -discharge planning, ambulatory sats prior to discharge Elmo Beatty MD, FACP [facility] O: [phone] F: [phone] Subjective Date of service: 01/03/21 Interval history: no fever. oxygen being weaned. Objective - Exam Narrative Exam: Physical Exam (reviewed in chart to minimize risk of transmission) Constitutional: deferred Head, Ears, Nose: deferred Eyes: deferred Neck: deferred Oral: deferred Cardiovascular: deferred Respiratory: deferred GI: deferred Musculoskeletal: deferred Skin: deferred Hem/Lymphatic: deferred Psych: deferred Neurological: deferred - Constitutional Vitals: Vital Signs Temp Pulse Resp BP Pulse Ox 97.8 F 76 16 114/64 93 01/03/21 13:14 01/03/21 13:14 01/03/21 13:14 01/03/21 13:14 01/03/21 13:14 Temperature -Last 24 Hours Temperature 97.8 F Temperature 97.7 F Temperature 97.4 F - Labs CBC & Chem 7: 01/01/21 06:38 01/03/21 05:40 Labs: Abnormal lab results 01/02/21 01/02/21 01/02/21 Range/Units 16:16 16:20 21:57 ABG pO2 61.6 L (80.0-90.0) mm Hg ABG O2 Saturation 92.1 L (95.0-99.0) % Oxyhemoglobin 90.4 L (95.0-99.0) % Sodium (137-145) mmol/L BUN (9-20) mg/dL Glucose (75-100) mg/dL POC Glucose 463 H 378 H (70-105) mg/dL Albumin (3.9-5) g/dL 01/03/21 01/03/21 Range/Units 05:40 07:49 ABG pO2 (80.0-90.0) mm Hg ABG O2 Saturation (95.0-99.0) % Oxyhemoglobin (95.0-99.0) % Sodium 136 L (137-145) mmol/L BUN 30 H (9-20) mg/dL Glucose 191 H (75-100) mg/dL POC Glucose 219 H (70-105) mg/dL Albumin 3.1 L (3.9-5) g/dL
[2021-01-03] MEDS: HYDROcodone/ACETAMINOPHEN 7.5-325MG TAB PO PRN (16:27)
[2021-01-03] MEDS: REMDESIVIR 100 MG in SODIUM CHLORIDE 0.9% 250ML 250 ML IV SCH (21:23)
[2021-01-03] MEDS: SODIUM CHLORIDE 0.9% 50 ML IVPB IV SCH (21:23)
[2021-01-04] MEDS: HEPARIN 5,000 UNIT/1 ML VIAL SUB-Q SCH ×3 (06:14→22:06)
[2021-01-04] MEDS: FUROSEMIDE 40 MG/4 ML INJ IV SCH ×2 (06:14→17:13)
[2021-01-04 07:04] LABS: Alanine Aminotransferase 21 units/L (7-56); BUN/Creatinine Ratio 28; Blood Urea Nitrogen 28 mg/dL (9-20); Calcium 8.5 mg/dL (8.4-10.2); Hemolysis Index 6
[2021-01-04] MEDS: INSULIN LISPRO 100 UNIT/ML SUB-Q SCH ×4 (07:30→22:05)
[2021-01-04] MEDS: DEXAMETHASONE 4 MG TAB PO SCH ×2 (08:34→12:26)
[2021-01-04] MEDS: INSULIN NPH/REGULAR 70/30 INJ SUB-Q SCH ×2 (08:35→17:13)
[2021-01-04] MEDS: PANTOPRAZOLE 40 MG TAB PO SCH (09:29)
[2021-01-04] MEDS: HYDROcodone/ACETAMINOPHEN 7.5-325MG TAB PO PRN (09:35)
--- NOTE | 2021-01-04 10:28 | Event Note ---
Date: 01/04/21 [facility] Plan for outpatient echo in our [place] office on 01/31/2021 @ 1pm. Follow-up with Dr. Womack in our [place] office on 02/16/2021 @ 1:15pm ([phone]). CHELO WOMACK MD / ISIDRA SUÁREZ NP
[2021-01-04] MEDS ORDERED: guaiFENesin DM 200/20 MG ORAL LIQD 10 ML PO PRN (10:50)
--- NOTE | 2021-01-04 12:59 | Progress Note ---
Assessment and Plan Assessment and plan: --COVID-19 infection; COVID-19 PCR positive on 01/01/2021 Current Visit: Yes Status: Acute Oxygen via nasal cannula 3 L/min. /This morning patient is on room air O2 sats 91%[oxygen standby] Contact and droplet isolation, dexamethasone 6 mg IV daily. Remdesivir, follow inflammatory markers Prone positioning as tolerated Home O2 evaluation at discharge Antibiotics DC'd, procalcitonin low ID following -- Acute CHF[CHF on chest x-ray] Current Visit: Yes Status: Acute Patient has no history of CHF in the past , IV diuretics Fluid restriction , input output monitoring , Covid infection echo as outpatient on 01/31/2021 per cards Low-sodium diet , cardiology consult if needed --Acute respiratory failure with hypoxia Current Visit: Yes Status: Acute Requiring supplemental oxygen 3lt NC. Treat the underlying cause Empiric antibiotics, home oxygen evaluation at discharge --Obesity BMI 36.0-36.9,adult Current Visit: Yes Status: Acute Patient needs dietary modification, exercise as tolerated and weight reduction When medically stable -- Hyperglycemia Current Visit: Yes Status: Acute Accu-Chek sliding scale coverage ADA diet Check A1c -- DVT prophylaxis Current Visit: Yes Status: Acute Plan to address problem: Heparin 5000 units subcu every 8 hours. We will closely monitor the patient and adjust the management as needed Plan of care reviewed with the patient and her nurse 01/01/2021; follow-up horn PCR test Continue isolation 01/02/2021; COVID-19 positive Continue dexamethasone, remdesivir, prone position Hypoxic requiring 2 to 3 L of nasal cannula oxygen ID recommendations noted and appreciated 01/03/2021; patient feels better, no new complaints Saturating well on room air Continue steroids and remdesivir Home O2 evaluation at discharge 01/04/2021; saturating well on room air Blood sugars moderate control on 70/30 insulin We will check resting room air and 6-minute walk test To evaluate for home oxygen Possible discharge in 1 to 2 days if stable History Interval history: I have seen and examined the patient at the bedside Patient's chart and medications reviewed Patient feels slightly better Saturating room air Concerned about his blood sugars Does not want to take insulin for a long time Vital signs reviewed Hospitalist Physical - Constitutional Vitals: Temp Pulse Resp BP Pulse Ox 97.4 F L 64 18 131/84 94 01/04/21 05:09 01/04/21 05:09 01/04/21 05:09 01/04/21 05:09 01/04/21 05:09 General appearance: Present: no acute distress, well-nourished, obese - EENT Eyes: Present: PERRL, EOM intact - Neck Neck: Present: supple, normal ROM - Respiratory Respiratory effort: normal Respiratory: bilateral: diminished, negative: rales, rhonchi, wheezing - Cardiovascular Rhythm: regular Heart Sounds: Present: S1 & S2 - Extremities Extremities: no ischemia, No edema - Abdominal General gastrointestinal: soft, non-tender, non-distended, normal bowel sounds - Integumentary Integumentary: Present: clear, warm - Psychiatric Psychiatric: appropriate mood/affect, cooperative - Neurologic Neurologic: CNII-XII intact, moves all extremities HEART Score - HEART Score Troponin: Troponin T < 0.010 ng/mL (0.00-0.029) 12/31/20 21:51 Results - Labs CBC & Chem 7: 01/01/21 06:38 01/04/21 06:17 Labs: Laboratory Last Values WBC 8.0 K/mm3 (4.5-11.0) 01/01/21 06:38 RBC 4.17 M/mm3 (3.65-5.03) 01/01/21 06:38 Hgb 12.3 gm/dl (11.8-15.2) 01/01/21 06:38 Hct 36.1 % (35.5-45.6) 01/01/21 06:38 MCV 86 fl (84-94) 01/01/21 06:38 MCH 30 pg (28-32) 01/01/21 06:38 MCHC 34 % (32-34) 01/01/21 06:38 RDW 13.3 % (13.2-15.2) 01/01/21 06:38 Plt Count 190 K/mm3 (140-440) 01/01/21 06:38 Lymph % (Auto) 7.5 % (13.4-35.0) L 12/31/20 16:59 Weld % (Auto) 5.7 % (0.0-7.3) 12/31/20 16:59 Eos % (Auto) 0.0 % (0.0-4.3) 12/31/20 16:59 Baso % (Auto) 0.4 % (0.0-1.8) 12/31/20 16:59 Lymph # (Auto) 0.7 K/mm3 (1.2-5.4) L 12/31/20 16:59 Weld # (Auto) 0.6 K/mm3 (0.0-0.8) 12/31/20 16:59 Eos # (Auto) 0.0 K/mm3 (0.0-0.4) 12/31/20 16:59 Baso # (Auto) 0.0 K/mm3 (0.0-0.1) 12/31/20 16:59 Add Manual Diff Complete 01/01/21 06:38 Total Counted 100 01/01/21 06:38 Seg Neutrophils % [employer] Estimator 01/01/21 06:38 Seg Neuts % (Manual) 87.0 % (40.0-70.0) H 01/01/21 06:38 Band Neutrophils % 5.0 % 01/01/21 06:38 Lymphocytes % (Manual) 5.0 % (13.4-35.0) L 01/01/21 06:38 Monocytes % (Manual) 2.0 % (0.0-7.3) 01/01/21 06:38 Metamyelocytes % 1.0 % 01/01/21 06:38 Nucleated RBC % Not Reportable 01/01/21 06:38 Seg Neutrophils # 8.6 K/mm3 (1.8-7.7) H 12/31/20 16:59 Seg Neutrophils # Man 7.0 K/mm3 (1.8-7.7) 01/01/21 06:38 Band Neutrophils # 0.4 K/mm3 01/01/21 06:38 Lymphocytes # (Manual) 0.4 K/mm3 (1.2-5.4) L 01/01/21 06:38 Abs React Lymphs (Man) 0.0 K/mm3 01/01/21 06:38 Monocytes # (Manual) 0.2 K/mm3 (0.0-0.8) 01/01/21 06:38 Eosinophils # (Manual) 0.0 K/mm3 (0.0-0.4) 01/01/21 06:38 Basophils # (Manual) 0.0 K/mm3 (0.0-0.1) 01/01/21 06:38 Metamyelocytes # 0.1 K/mm3 01/01/21 06:38 Myelocytes # 0.0 K/mm3 01/01/21 06:38 Promyelocytes # 0.0 K/mm3 01/01/21 06:38 Blast Cells # 0.0 K/mm3 01/01/21 06:38 WBC Morphology Not Reportable 01/01/21 06:38 WBC Morphology TNR 01/01/21 06:38 Hypersegmented Neuts Not Reportable 01/01/21 06:38 Hyposegmented Neuts Not Reportable 01/01/21 06:38 Hypogranular Neuts Not Reportable 01/01/21 06:38 Smudge Cells Not Reportable 01/01/21 06:38 Toxic Granulation Not Reportable 01/01/21 06:38 Toxic Vacuolation Not Reportable 01/01/21 06:38 Dohle Bodies Not Reportable 01/01/21 06:38 Pelger-Huet Anomaly Not Reportable 01/01/21 06:38 Ronnell Rods Not Reportable 01/01/21 06:38 Platelet Estimate Consistent w auto 01/01/21 06:38 Clumped Platelets Not Reportable 01/01/21 06:38 Plt Clumps, EDTA Not Reportable 01/01/21 06:38 Large Platelets Not Reportable 01/01/21 06:38 Giant Platelets Not Reportable 01/01/21 06:38 Platelet Satelliting Not Reportable 01/01/21 06:38 Plt Morphology Comment Not Reportable 01/01/21 06:38 RBC Morphology Normal 01/01/21 06:38 Dimorphic RBCs Not Reportable 01/01/21 06:38 Polychromasia Not Reportable 01/01/21 06:38 Hypochromasia Not Reportable 01/01/21 06:38 Poikilocytosis Not Reportable 01/01/21 06:38 Anisocytosis Not Reportable 01/01/21 06:38 Microcytosis Not Reportable 01/01/21 06:38 Macrocytosis Not Reportable 01/01/21 06:38 Spherocytes Not Reportable 01/01/21 06:38 Pappenheimer Bodies Not Reportable 01/01/21 06:38 Sickle Cells Not Reportable 01/01/21 06:38 Target Cells Not Reportable 01/01/21 06:38 Tear Drop Cells Not Reportable 01/01/21 06:38 Ovalocytes Not Reportable 01/01/21 06:38 Helmet Cells Not Reportable 01/01/21 06:38 Castellano-Waikele Bodies Not Reportable 01/01/21 06:38 [place] Rings Not Reportable 01/01/21 06:38 Grace Cells Not Reportable 01/01/21 06:38 Bite Cells Not Reportable 01/01/21 06:38 Crenated Cell Not Reportable 01/01/21 06:38 Elliptocytes Not Reportable 01/01/21 06:38 Acanthocytes (Spur) Not Reportable 01/01/21 06:38 Rouleaux Not Reportable 01/01/21 06:38 Hemoglobin C Crystals Not Reportable 01/01/21 06:38 Schistocytes Not Reportable 01/01/21 06:38 Malaria parasites Not Reportable 01/01/21 06:38 Steve Bodies Not Reportable 01/01/21 06:38 Hem Pathologist Commnt No 01/01/21 06:38 D-Dimer 279.87 ng/mlDDU (0-234) H 01/03/21 13:36 ABG pH 7.425 pH Units (7.350-7.450) 01/02/21 16:20 ABG pCO2 38.7 mm Hg 01/02/21 16:20 ABG pO2 61.6 mm Hg (80.0-90.0) L 01/02/21 16:20 ABG HCO3 24.8 mmol/L (20.0-26.0) 01/02/21 16:20 ABG O2 Saturation 92.1 % (95.0-99.0) L 01/02/21 16:20 ABG O2 Content 22.7 (0.0-44) 01/02/21 16:20 ABG Base Excess 0.6 mmol/L (-2.0-3.0) 01/02/21 16:20 ABG Hemoglobin 17.9 gm/dl (14.0-18.0) 01/02/21 16:20 ABG Carboxyhemoglobin 1.3 % (0.0-5.0) 01/02/21 16:20 ABG Methemoglobin 0.5 % (0.0-1.5) 01/02/21 16:20 Oxyhemoglobin 90.4 % (95.0-99.0) L 01/02/21 16:20 FiO2 21 % 01/02/21 16:20 Sodium 140 mmol/L (137-145) 01/04/21 06:17 Potassium 3.5 mmol/L (3.6-5.0) L 01/04/21 06:17 Chloride 99.9 mmol/L (98-107) 01/04/21 06:17 Carbon Dioxide 31 mmol/L (22-30) H 01/04/21 06:17 Anion Gap 13 mmol/L 01/04/21 06:17 BUN 28 mg/dL (9-20) H 01/04/21 06:17 Creatinine 1.0 mg/dL (0.8-1.3) 01/04/21 06:17 Estimated GFR > 60 ml/min 01/04/21 06:17 BUN/Creatinine Ratio 28 % 01/04/21 06:17 Glucose 88 mg/dL (75-100) 01/04/21 06:17 POC Glucose 102 mg/dL (70-105) 01/04/21 08:07 Hemoglobin A1c 12.2 % (4-6) H 01/01/21 06:38 Lactic Acid 1.40 mmol/L (0.7-2.0) 12/31/20 21:51 Calcium 8.5 mg/dL (8.4-10.2) 01/04/21 06:17 Magnesium 2.20 mg/dL (1.7-2.3) 12/31/20 21:51 Ferritin 1051.0 ng/mL (30.0-300.0) H 01/03/21 13:36 Total Bilirubin 0.30 mg/dL (0.1-1.2) 01/04/21 06:17 AST 16 units/L (5-40) 01/04/21 06:17 ALT 21 units/L (7-56) 01/04/21 06:17 Alkaline Phosphatase 76 units/L (35-129) 01/04/21 06:17 Lactate Dehydrogenase 312 units/L (91-180) H 01/03/21 13:36 Total Creatine Kinase 374 units/L (55-170) H 12/31/20 21:51 Troponin T < 0.010 ng/mL (0.00-0.029) 12/31/20 21:51 C-Reactive Protein 8.00 mg/dL (0.00-1.30) H 01/03/21 13:36 NT-Pro-B Natriuret Pep 64.03 pg/mL (0-900) 12/31/20 21:51 Total Protein 7.1 g/dL (6.3-8.2) 01/04/21 06:17 Albumin 3.0 g/dL (3.9-5) L 01/04/21 06:17 Albumin/Globulin Ratio 0.7 % 01/04/21 06:17 Lipase 64 units/L (13-60) H 12/31/20 16:59 Procalcitonin 0.25 ng/mL (<0.15) 12/31/20 21:51 Urine Color Yellow (Yellow) 12/31/20 16:39 Urine Turbidity Clear (Clear) 12/31/20 16:39 Urine pH 5.0 (5.0-7.0) 12/31/20 16:39 Ur Specific Cord 1.029 (1.003-1.030) 12/31/20 16:39 Urine Protein 100 mg/dl mg/dL (Negative) 12/31/20 16:39 Urine Glucose (UA) >=500 mg/dL (Negative) 12/31/20 16:39 Urine Ketones 20 mg/dL (Negative) 12/31/20 16:39 Urine Blood Sm (Negative) 12/31/20 16:39 Urine Nitrite Neg (Negative) 12/31/20 16:39 Ur Reducing Substances Not Reportable 12/31/20 16:39 Urine Bilirubin Neg (Negative) 12/31/20 16:39 Urine Ictotest Not Reportable 12/31/20 16:39 Urine Urobilinogen < 2.0 mg/dL (<2.0) 12/31/20 16:39 Ur Leukocyte Esterase Neg (Negative) 12/31/20 16:39 Urine WBC (Auto) 1.0 /HPF (0.0-6.0) 12/31/20 16:39 Urine RBC (Auto) 2.0 /HPF (0.0-6.0) 12/31/20 16:39 U Epithel Cells (Auto) < 1.0 /HPF (0-13.0) 12/31/20 16:39 Urine Mucus Few /HPF 12/31/20 16:39 Coronavirus (PCR) Positive (Negative) A 01/01/21 Unknown Microbiology: Microbiology 12/31/20 21:45 Peripheral/Venous Blood Culture - Preliminary NO GROWTH AFTER 72 HOURS 12/31/20 21:51 Peripheral/Venous Blood Culture - Preliminary NO GROWTH AFTER 72 HOURS Zafar/IV: Voiding Method Urinal Active Medications - Current Medications Current Medications: Generic Name Dose Route Start Last Admin Trade Name Freq PRN Reason Stop Dose Admin Hydrocodone Bitart/Acetaminophen 1 each 12/31/20 21:54 01/04/21 09:35 Hydrocodone/Acetaminophen 7.5-325mg Tab PO 1 each Q6HR PRN Administration Pain, Moderate (4-6) Dexamethasone 6 mg 01/04/21 10:00 01/04/21 12:26 Dexamethasone 4 Mg Tab PO 01/09/21 12:00 Not Given DAILY RENÉ Dextrose 50 ml 12/31/20 21:54 Dextrose 50% In Water (25gm) 50 Ml Syringe IV Q30MIN PRN Hypoglycemia Protocol Furosemide 40 mg 01/01/21 06:00 01/04/21 06:14 Furosemide 40 Mg/4 Ml Inj IV 40 mg BID@0600,1800 RENÉ Administration Guaifenesin 10 ml 01/04/21 10:50 01/04/21 12:35 Guaifenesin Dm 200/20 Mg Oral Liqd 10 Ml PO 10 ml Q4H PRN Administration Cough Heparin Sodium (Porcine) 5,000 unit 12/31/20 22:00 01/04/21 06:14 Heparin 5,000 Unit/1 Ml Vial SUB-Q 5,000 unit Q8HR RENÉ Administration Hydralazine HCl 10 mg 12/31/20 21:51 Hydralazine 20 Mg/1 Ml Inj IV Q6H PRN htn REMDESIVIR 100 mg/ Sodium 250 mls @ 500 mls/hr 01/02/21 21:00 01/03/21 21:23 Chloride IV 01/05/21 21:29 500 mls/hr Q24HR@2100 RENÉ Administration Insulin Human Isoph/Insulin Regular 38 unit 01/02/21 10:47 01/04/21 08:35 Insulin Nph/Regular 70/30 Inj SUB-Q 38 unit BIDDIAB RENÉ Administration Insulin Human Lispro 0 unit 12/31/20 22:00 01/04/21 11:30 Insulin Lispro 100 Unit/Ml SUB-Q Not Given ACHS [facility] Protocol Nitroglycerin 0.4 mg 12/31/20 21:47 Nitroglycerin 0.4 Mg Tab Subl SL .Q5MIN PRN Chest Pain Pantoprazole Sodium 40 mg 01/01/21 07:30 01/04/21 09:29 Pantoprazole 40 Mg Tab PO 40 mg QDAC RENÉ Administration Potassium Chloride 30 meq 01/04/21 12:56 Potassium Chloride Er 10 Meq Tab PO 01/04/21 12:57 ONCE ONE Sodium Chloride 50 ml 01/01/21 21:00 01/03/21 21:23 Sodium Chloride 0.9% 50 Ml Ivpb IV 01/05/21 21:01 50 ml Q24HR@2100 RENÉ Administration Nutrition/Malnutrition Assess - Dietary Evaluation Nutrition/Malnutrition Findings: Nutrition Notes Start: 01/01/21 10:09 Freq: Status: Active Protocol: Document 01/04/21 10:07 ANKIT (Rec: 01/04/21 10:11 ANKIT [id number]) Nutrition Notes Initial or Follow up Brief Note Current Diagnosis Heart Failure,Respiratory Failure Other Pertinent Diagnosis COVID (+) Current Diet Cardiac Labs/Tests A1c 12.2 Subjective/Other Information FU for diet education. Pt states he is new to having high blood sugars and heart failure. Pt given education will give handouts to RN to give to pt. Pt overwhelmed with infromation and unable to fully understand infromation. Pt would like a couple days to process information. #1 Nutrition Diagnosis Food and nutrition-related knowledge deficit Etiology no prior diet education As Evidenced by Signs and Symptoms pt new to high blood sugars and heart failure Nutrition Intervention Learning Readiness Good Teaching Methods Discussion,Handout Response to Teaching Reinforcement needed Education Handouts Provided Planning Heathy Meals Low Sodium Nutrition Therapy Barriers to Learning Emotional RD phone number provided Yes Patient aware of follow up options Yes Follow-Up By: 01/06/21 Additional Comments FU for education reinforcement
[2021-01-04] MEDS ORDERED: POTASSIUM CHLORIDE ER 10 MEQ TAB PO NR (13:15)
--- NOTE | 2021-01-04 13:36 | Progress Note ---
Assessment and Plan Cultures: Blood culture no growth so far Covid PCR: Positive A/P: 65-year-old male past medical history obesity, sleep apnea, hypertension admitted with COVID-19 #COVID-19 pneumonia: Patient presented with nearly 3 weeks of symptoms. Inflammatory markers elevated. Symptoms began nearly 2 weeks prior to receiving second dose of COVID-19 vaccine. #Acute hypoxemic respiratory failure: Likely secondary to COVID-19 infection. improving. #Obesity Recs: -weaned off oxygen, remdesivir discontinued -Continue dexamethasone 6 mg IV/PO daily for 10 days -CRP improving -discharge planning, ambulatory sats prior to discharge Elmo Beatty MD, FACP [facility] O: [phone] F: [phone] Subjective Date of service: 01/04/21 Interval history: No fever. Weaned off oxygen. Objective - Exam Narrative Exam: Physical Exam (reviewed in chart to minimize risk of transmission) Constitutional: deferred Head, Ears, Nose: deferred Eyes: deferred Neck: deferred Oral: deferred Cardiovascular: deferred Respiratory: deferred GI: deferred Musculoskeletal: deferred Skin: deferred Hem/Lymphatic: deferred Psych: deferred Neurological: deferred - Constitutional Vitals: Vital Signs Temp Pulse Resp BP Pulse Ox 97.7 F 68 22 151/72 95 01/04/21 11:29 01/04/21 11:29 01/04/21 11:29 01/04/21 11:29 01/04/21 11:29 Temperature -Last 24 Hours Temperature 97.7 F Temperature 97.4 F Temperature 98.1 F Temperature 98.3 F - Labs CBC & Chem 7: 01/01/21 06:38 01/04/21 06:17 Labs: Abnormal lab results 01/03/21 01/03/21 01/03/21 Range/Units 12:00 13:36 13:36 D-Dimer 279.87 H (0-234) ng/mlDDU Potassium (3.6-5.0) mmol/L Carbon Dioxide (22-30) mmol/L BUN (9-20) mg/dL POC Glucose 163 H (70-105) mg/dL Ferritin 1051.0 H (30.0-300.0) ng/mL Lactate Dehydrogenase (91-180) units/L C-Reactive Protein (0.00-1.30) mg/dL Albumin (3.9-5) g/dL 01/03/21 01/03/21 01/03/21 Range/Units 13:36 15:56 22:16 D-Dimer (0-234) ng/mlDDU Potassium (3.6-5.0) mmol/L Carbon Dioxide (22-30) mmol/L BUN (9-20) mg/dL POC Glucose 248 H 429 H (70-105) mg/dL Ferritin (30.0-300.0) ng/mL Lactate Dehydrogenase 312 H (91-180) units/L C-Reactive Protein 8.00 H (0.00-1.30) mg/dL Albumin (3.9-5) g/dL 01/04/21 Range/Units 06:17 D-Dimer (0-234) ng/mlDDU Potassium 3.5 L (3.6-5.0) mmol/L Carbon Dioxide 31 H (22-30) mmol/L BUN 28 H (9-20) mg/dL POC Glucose (70-105) mg/dL Ferritin (30.0-300.0) ng/mL Lactate Dehydrogenase (91-180) units/L C-Reactive Protein (0.00-1.30) mg/dL Albumin 3.0 L (3.9-5) g/dL
[2021-01-04] MEDS: SODIUM CHLORIDE 0.9% 50 ML IVPB IV SCH (21:52)
[2021-01-05] MEDS: HEPARIN 5,000 UNIT/1 ML VIAL SUB-Q SCH ×2 (05:52→13:29)
[2021-01-05] MEDS: FUROSEMIDE 40 MG/4 ML INJ IV SCH (05:52)
[2021-01-05] MEDS: INSULIN LISPRO 100 UNIT/ML SUB-Q SCH ×2 (07:30→11:30)
[2021-01-05] MEDS: PANTOPRAZOLE 40 MG TAB PO SCH (07:30)
[2021-01-05] MEDS: INSULIN NPH/REGULAR 70/30 INJ SUB-Q SCH (08:00)
[2021-01-05] MEDS: DEXAMETHASONE 4 MG TAB PO SCH (09:32)
--- NOTE | 2021-01-05 10:02 | Progress Note ---
Assessment and Plan Assessment and plan: --COVID-19 infection; COVID-19 PCR positive on 01/01/2021 Current Visit: Yes Status: Acute Oxygen via nasal cannula 3 L/min. /This morning patient is on room air O2 sats 91%[oxygen standby] Contact and droplet isolation, dexamethasone 6 mg IV daily. Remdesivir, follow inflammatory markers Prone positioning as tolerated Home O2 evaluation at discharge Antibiotics DC'd, procalcitonin low ID following -- Acute CHF[CHF on chest x-ray] Current Visit: Yes Status: Acute Patient has no history of CHF in the past , IV diuretics Fluid restriction , input output monitoring , Covid infection echo as outpatient on 01/31/2021 per cards Low-sodium diet , cardiology consult if needed --Acute respiratory failure with hypoxia Current Visit: Yes Status: Acute Requiring supplemental oxygen 3lt NC. Treat the underlying cause Empiric antibiotics, home oxygen evaluation at discharge --Obesity BMI 36.0-36.9,adult Current Visit: Yes Status: Acute Patient needs dietary modification, exercise as tolerated and weight reduction When medically stable -- Hyperglycemia Current Visit: Yes Status: Acute Accu-Chek sliding scale coverage ADA diet Check A1c -- DVT prophylaxis Current Visit: Yes Status: Acute Plan to address problem: Heparin 5000 units subcu every 8 hours. We will closely monitor the patient and adjust the management as needed Plan of care reviewed with the patient and her nurse 01/01/2021; follow-up horn PCR test Continue isolation 01/02/2021; COVID-19 positive Continue dexamethasone, remdesivir, prone position Hypoxic requiring 2 to 3 L of nasal cannula oxygen ID recommendations noted and appreciated 01/03/2021; patient feels better, no new complaints Saturating well on room air Continue steroids and remdesivir Home O2 evaluation at discharge 01/04/2021; saturating well on room air Blood sugars moderate control on 70/30 insulin We will check resting room air and 6-minute walk test To evaluate for home oxygen Possible discharge in 1 to 2 days if stable Hospitalist Physical - Constitutional Vitals: Temp Pulse Resp BP Pulse Ox 97.3 F L 66 16 119/68 96 01/05/21 04:32 01/05/21 04:32 01/05/21 04:32 01/05/21 04:32 01/05/21 04:32 General appearance: Present: no acute distress, well-nourished, obese HEART Score - HEART Score Troponin: Troponin T < 0.010 ng/mL (0.00-0.029) 12/31/20 21:51 Results - Labs CBC & Chem 7: 01/01/21 06:38 01/04/21 06:17 Labs: Laboratory Last Values WBC 8.0 K/mm3 (4.5-11.0) 01/01/21 06:38 RBC 4.17 M/mm3 (3.65-5.03) 01/01/21 06:38 Hgb 12.3 gm/dl (11.8-15.2) 01/01/21 06:38 Hct 36.1 % (35.5-45.6) 01/01/21 06:38 MCV 86 fl (84-94) 01/01/21 06:38 MCH 30 pg (28-32) 01/01/21 06:38 MCHC 34 % (32-34) 01/01/21 06:38 RDW 13.3 % (13.2-15.2) 01/01/21 06:38 Plt Count 190 K/mm3 (140-440) 01/01/21 06:38 Lymph % (Auto) 7.5 % (13.4-35.0) L 12/31/20 16:59 [place] % (Auto) 5.7 % (0.0-7.3) 12/31/20 16:59 Eos % (Auto) 0.0 % (0.0-4.3) 12/31/20 16:59 Baso % (Auto) 0.4 % (0.0-1.8) 12/31/20 16:59 Lymph # (Auto) 0.7 K/mm3 (1.2-5.4) L 12/31/20 16:59 [place] # (Auto) 0.6 K/mm3 (0.0-0.8) 12/31/20 16:59 Eos # (Auto) 0.0 K/mm3 (0.0-0.4) 12/31/20 16:59 Baso # (Auto) 0.0 K/mm3 (0.0-0.1) 12/31/20 16:59 Add Manual Diff Complete 01/01/21 06:38 Total Counted 100 01/01/21 06:38 Seg Neutrophils % Prisoner Classification Interviewer 01/01/21 06:38 Seg Neuts % (Manual) 87.0 % (40.0-70.0) H 01/01/21 06:38 Band Neutrophils % 5.0 % 01/01/21 06:38 Lymphocytes % (Manual) 5.0 % (13.4-35.0) L 01/01/21 06:38 Monocytes % (Manual) 2.0 % (0.0-7.3) 01/01/21 06:38 Metamyelocytes % 1.0 % 01/01/21 06:38 Nucleated RBC % Not Reportable 01/01/21 06:38 Seg Neutrophils # 8.6 K/mm3 (1.8-7.7) H 12/31/20 16:59 Seg Neutrophils # Man 7.0 K/mm3 (1.8-7.7) 01/01/21 06:38 Band Neutrophils # 0.4 K/mm3 01/01/21 06:38 Lymphocytes # (Manual) 0.4 K/mm3 (1.2-5.4) L 01/01/21 06:38 Abs React Lymphs (Man) 0.0 K/mm3 01/01/21 06:38 Monocytes # (Manual) 0.2 K/mm3 (0.0-0.8) 01/01/21 06:38 Eosinophils # (Manual) 0.0 K/mm3 (0.0-0.4) 01/01/21 06:38 Basophils # (Manual) 0.0 K/mm3 (0.0-0.1) 01/01/21 06:38 Metamyelocytes # 0.1 K/mm3 01/01/21 06:38 Myelocytes # 0.0 K/mm3 01/01/21 06:38 Promyelocytes # 0.0 K/mm3 01/01/21 06:38 Blast Cells # 0.0 K/mm3 01/01/21 06:38 WBC Morphology Not Reportable 01/01/21 06:38 WBC Morphology TNR 01/01/21 06:38 Hypersegmented Neuts Not Reportable 01/01/21 06:38 Hyposegmented Neuts Not Reportable 01/01/21 06:38 Hypogranular Neuts Not Reportable 01/01/21 06:38 Smudge Cells Not Reportable 01/01/21 06:38 Toxic Granulation Not Reportable 01/01/21 06:38 Toxic Vacuolation Not Reportable 01/01/21 06:38 Dohle Bodies Not Reportable 01/01/21 06:38 Pelger-Huet Anomaly Not Reportable 01/01/21 06:38 Ronnell Rods Not Reportable 01/01/21 06:38 Platelet Estimate Consistent w auto 01/01/21 06:38 Clumped Platelets Not Reportable 01/01/21 06:38 Plt Clumps, EDTA Not Reportable 01/01/21 06:38 Large Platelets Not Reportable 01/01/21 06:38 Giant Platelets Not Reportable 01/01/21 06:38 Platelet Satelliting Not Reportable 01/01/21 06:38 Plt Morphology Comment Not Reportable 01/01/21 06:38 RBC Morphology Normal 01/01/21 06:38 Dimorphic RBCs Not Reportable 01/01/21 06:38 Polychromasia Not Reportable 01/01/21 06:38 Hypochromasia Not Reportable 01/01/21 06:38 Poikilocytosis Not Reportable 01/01/21 06:38 Anisocytosis Not Reportable 01/01/21 06:38 Microcytosis Not Reportable 01/01/21 06:38 Macrocytosis Not Reportable 01/01/21 06:38 Spherocytes Not Reportable 01/01/21 06:38 Pappenheimer Bodies Not Reportable 01/01/21 06:38 Sickle Cells Not Reportable 01/01/21 06:38 Target Cells Not Reportable 01/01/21 06:38 Tear Drop Cells Not Reportable 01/01/21 06:38 Ovalocytes Not Reportable 01/01/21 06:38 Helmet Cells Not Reportable 01/01/21 06:38 [place] Bodies Not Reportable 01/01/21 06:38 [place] Rings Not Reportable 01/01/21 06:38 [place] Cells Not Reportable 01/01/21 06:38 Bite Cells Not Reportable 01/01/21 06:38 Crenated Cell Not Reportable 01/01/21 06:38 Elliptocytes Not Reportable 01/01/21 06:38 Acanthocytes (Spur) Not Reportable 01/01/21 06:38 Rouleaux Not Reportable 01/01/21 06:38 Hemoglobin C Crystals Not Reportable 01/01/21 06:38 Schistocytes Not Reportable 01/01/21 06:38 Malaria parasites Not Reportable 01/01/21 06:38 Steve Bodies Not Reportable 01/01/21 06:38 Hem Pathologist Commnt No 01/01/21 06:38 D-Dimer 279.87 ng/mlDDU (0-234) H 01/03/21 13:36 ABG pH 7.425 pH Units (7.350-7.450) 01/02/21 16:20 ABG pCO2 38.7 mm Hg 01/02/21 16:20 ABG pO2 61.6 mm Hg (80.0-90.0) L 01/02/21 16:20 ABG HCO3 24.8 mmol/L (20.0-26.0) 01/02/21 16:20 ABG O2 Saturation 92.1 % (95.0-99.0) L 01/02/21 16:20 ABG O2 Content 22.7 (0.0-44) 01/02/21 16:20 ABG Base Excess 0.6 mmol/L (-2.0-3.0) 01/02/21 16:20 ABG Hemoglobin 17.9 gm/dl (14.0-18.0) 01/02/21 16:20 ABG Carboxyhemoglobin 1.3 % (0.0-5.0) 01/02/21 16:20 ABG Methemoglobin 0.5 % (0.0-1.5) 01/02/21 16:20 Oxyhemoglobin 90.4 % (95.0-99.0) L 01/02/21 16:20 FiO2 21 % 01/02/21 16:20 Sodium 140 mmol/L (137-145) 01/04/21 06:17 Potassium 3.5 mmol/L (3.6-5.0) L 01/04/21 06:17 Chloride 99.9 mmol/L (98-107) 01/04/21 06:17 Carbon Dioxide 31 mmol/L (22-30) H 01/04/21 06:17 Anion Gap 13 mmol/L 01/04/21 06:17 BUN 28 mg/dL (9-20) H 01/04/21 06:17 Creatinine 1.0 mg/dL (0.8-1.3) 01/04/21 06:17 Estimated GFR > 60 ml/min 01/04/21 06:17 BUN/Creatinine Ratio 28 % 01/04/21 06:17 Glucose 88 mg/dL (75-100) 01/04/21 06:17 POC Glucose 114 mg/dL (70-105) H 01/05/21 07:47 Hemoglobin A1c 12.2 % (4-6) H 01/01/21 06:38 Lactic Acid 1.40 mmol/L (0.7-2.0) 12/31/20 21:51 Calcium 8.5 mg/dL (8.4-10.2) 01/04/21 06:17 Magnesium 2.20 mg/dL (1.7-2.3) 12/31/20 21:51 Ferritin 1051.0 ng/mL (30.0-300.0) H 01/03/21 13:36 Total Bilirubin 0.30 mg/dL (0.1-1.2) 01/04/21 06:17 AST 16 units/L (5-40) 01/04/21 06:17 ALT 21 units/L (7-56) 01/04/21 06:17 Alkaline Phosphatase 76 units/L (35-129) 01/04/21 06:17 Lactate Dehydrogenase 312 units/L (91-180) H 01/03/21 13:36 Total Creatine Kinase 374 units/L (55-170) H 12/31/20 21:51 Troponin T < 0.010 ng/mL (0.00-0.029) 12/31/20 21:51 C-Reactive Protein 8.00 mg/dL (0.00-1.30) H 01/03/21 13:36 NT-Pro-B Natriuret Pep 64.03 pg/mL (0-900) 12/31/20 21:51 Total Protein 7.1 g/dL (6.3-8.2) 01/04/21 06:17 Albumin 3.0 g/dL (3.9-5) L 01/04/21 06:17 Albumin/Globulin Ratio 0.7 % 01/04/21 06:17 Lipase 64 units/L (13-60) H 12/31/20 16:59 Procalcitonin 0.25 ng/mL (<0.15) 12/31/20 21:51 Urine Color Yellow (Yellow) 12/31/20 16:39 Urine Turbidity Clear (Clear) 12/31/20 16:39 Urine pH 5.0 (5.0-7.0) 12/31/20 16:39 Ur Specific [place] 1.029 (1.003-1.030) 12/31/20 16:39 Urine Protein 100 mg/dl mg/dL (Negative) 12/31/20 16:39 Urine Glucose (UA) >=500 mg/dL (Negative) 12/31/20 16:39 Urine Ketones 20 mg/dL (Negative) 12/31/20 16:39 Urine Blood Sm (Negative) 12/31/20 16:39 Urine Nitrite Neg (Negative) 12/31/20 16:39 Ur Reducing Substances Not Reportable 12/31/20 16:39 Urine Bilirubin Neg (Negative) 12/31/20 16:39 Urine Ictotest Not Reportable 12/31/20 16:39 Urine Urobilinogen < 2.0 mg/dL (<2.0) 12/31/20 16:39 Ur Leukocyte Esterase Neg (Negative) 12/31/20 16:39 Urine WBC (Auto) 1.0 /HPF (0.0-6.0) 12/31/20 16:39 Urine RBC (Auto) 2.0 /HPF (0.0-6.0) 12/31/20 16:39 U Epithel Cells (Auto) < 1.0 /HPF (0-13.0) 12/31/20 16:39 Urine Mucus Few /HPF 12/31/20 16:39 Coronavirus (PCR) Positive (Negative) A 01/01/21 Unknown Microbiology: Microbiology 12/31/20 21:45 Peripheral/Venous Blood Culture - Preliminary NO GROWTH AFTER 4 DAYS 12/31/20 21:51 Peripheral/Venous Blood Culture - Preliminary NO GROWTH AFTER 4 DAYS Zfaar/IV: Voiding Method Urinal Active Medications - Current Medications Current Medications: Generic Name Dose Route Start Last Admin Trade Name Freq PRN Reason Stop Dose Admin Hydrocodone Bitart/Acetaminophen 1 each 12/31/20 21:54 01/04/21 09:35 Hydrocodone/Acetaminophen 7.5-325mg Tab PO 1 each Q6HR PRN Administration Pain, Moderate (4-6) Dexamethasone 6 mg 01/04/21 10:00 01/05/21 09:32 Dexamethasone 4 Mg Tab PO 01/09/21 12:00 6 mg DAILY RENÉ Administration Dextrose 50 ml 12/31/20 21:54 Dextrose 50% In Water (25gm) 50 Ml Syringe IV Q30MIN PRN Hypoglycemia Protocol Furosemide 40 mg 01/01/21 06:00 01/05/21 05:52 Furosemide 40 Mg/4 Ml Inj IV 40 mg BID@0600,1800 RENÉ Administration Guaifenesin 10 ml 01/04/21 10:50 01/04/21 12:35 Guaifenesin Dm 200/20 Mg Oral Liqd 10 Ml PO 10 ml Q4H PRN Administration Cough Heparin Sodium (Porcine) 5,000 unit 12/31/20 22:00 01/05/21 05:52 Heparin 5,000 Unit/1 Ml Vial SUB-Q 5,000 unit Q8HR RENÉ Administration Hydralazine HCl 10 mg 12/31/20 21:51 Hydralazine 20 Mg/1 Ml Inj IV Q6H PRN htn Insulin Human Isoph/Insulin Regular 38 unit 01/02/21 10:47 01/04/21 17:13 Insulin Nph/Regular 70/30 Inj SUB-Q 38 unit BIDDIAB RENÉ Administration Insulin Human Lispro 0 unit 12/31/20 22:00 01/05/21 07:30 Insulin Lispro 100 Unit/Ml SUB-Q Not Given ACHS [facility] Protocol Nitroglycerin 0.4 mg 12/31/20 21:47 Nitroglycerin 0.4 Mg Tab Subl SL .Q5MIN PRN Chest Pain Pantoprazole Sodium 40 mg 01/01/21 07:30 01/05/21 07:30 Pantoprazole 40 Mg Tab PO 40 mg QDAC RENÉ Administration Nutrition/Malnutrition Assess - Dietary Evaluation Nutrition/Malnutrition Findings: Nutrition Notes Start: 01/01/21 10:09 Freq: Status: Active Protocol: Document 01/04/21 10:07 ANKIT (Rec: 01/04/21 10:11 ANKIT [id number]) Nutrition Notes Initial or Follow up Brief Note Current Diagnosis Heart Failure,Respiratory Failure Other Pertinent Diagnosis COVID (+) Current Diet Cardiac Labs/Tests A1c 12.2 Subjective/Other Information FU for diet education. Pt states he is new to having high blood sugars and heart failure. Pt given education will give handouts to RN to give to pt. Pt overwhelmed with infromation and unable to fully understand infromation. Pt would like a couple days to process information. #1 Nutrition Diagnosis Food and nutrition-related knowledge deficit Etiology no prior diet education As Evidenced by Signs and Symptoms pt new to high blood sugars and heart failure Nutrition Intervention Learning Readiness Good Teaching Methods Discussion,Handout Response to Teaching Reinforcement needed Education Handouts Provided Planning Heathy Meals Low Sodium Nutrition Therapy Barriers to Learning Emotional RD phone number provided Yes Patient aware of follow up options Yes Follow-Up By: 01/06/21 Additional Comments FU for education reinforcement
--- NOTE | 2021-01-05 12:03 | Progress Note ---
Assessment and Plan Cultures: Blood culture no growth so far Covid PCR: Positive A/P: 65-year-old male past medical history obesity, sleep apnea, hypertension admitted with COVID-19 #COVID-19 pneumonia: Patient presented with nearly 3 weeks of symptoms. Inflammatory markers elevated. Symptoms began nearly 2 weeks prior to receiving second dose of COVID-19 vaccine. #Acute hypoxemic respiratory failure: Likely secondary to COVID-19 infection. improving. #Obesity Recs: -Continue dexamethasone 6 mg IV/PO daily to complete 10 days -ambulatory sats prior to discharge Elmo Beatty MD, FACP [facility] ([facility] O: [phone] F: [phone] Subjective Date of service: 01/05/21 Interval history: No fever. Remains on room air. Objective - Exam Narrative Exam: Physical Exam (reviewed in chart to minimize risk of transmission) Constitutional: deferred Head, Ears, Nose: deferred Eyes: deferred Neck: deferred Oral: deferred Cardiovascular: deferred Respiratory: deferred GI: deferred Musculoskeletal: deferred Skin: deferred Hem/Lymphatic: deferred Psych: deferred Neurological: deferred - Constitutional Vitals: Vital Signs Temp Pulse Resp BP Pulse Ox 97.3 F L 66 16 119/68 96 01/05/21 04:32 01/05/21 04:32 01/05/21 04:32 01/05/21 04:32 01/05/21 04:32 Temperature -Last 24 Hours Temperature 97.3 F Temperature 98.0 F Temperature 98.0 F - Labs CBC & Chem 7: 01/01/21 06:38 01/04/21 06:17 Labs: Abnormal lab results 01/04/21 01/04/21 01/04/21 Range/Units 11:27 17:03 21:15 POC Glucose 149 H 268 H 248 H (70-105) mg/dL 01/05/21 Range/Units 07:47 POC Glucose 114 H (70-105) mg/dL
[2021-01-05 13:23] VITALS: BP 119/64
--- NOTE | 2021-01-05 14:20 | Discharge Summary ---
Providers - Providers Date of Admission: 12/31/20 23:13 Date of discharge: 01/05/21 Attending physician: VALENTIN SAXENA 12/31/20 21:47 Consult to Physician [CONS] Routine Comment: Consulting Provider: SATNAM LAKE Physician Instructions: Reason For Exam: Suspected Covid 12/31/20 21:54 Consult to Dietitian/Nutrition [CONS] Routine Physician Instructions: Reason For Exam: Reason for Consult: Diet education 01/01/21 14:53 Consult to Physician [CONS] Routine Comment: Consulting Provider: DONALD MORTON Physician Instructions: Reason For Exam: Covid positive infection/hypoxia Primary care physician: SUPERVISOR SAWMILL Hospitalization Reason for admission: Acute hypoxic respiratory failure/COVID-19 Condition: Fair Pertinent studies: Chest x-ray Hospital course: 65-year-old morbidly obese female patient with BMI of 37.7 with significant past medical history of COPD hypertension obstructive sleep apnea was admitted to emergency room with worsening shortness of breath acute hypoxic respiratory failure, patient was high suspicion for COVID-19 Patient was initially evaluated COVID-19 test was positive, recommended isolation managed according to COVID-19 protocols evaluated by ID patient received dexamethasone and remdesivir,Patient also has congestive heart failure, cardiology evaluated and recommended outpatient echocardiogram Symptomatically managed, Symptoms slowly but gradually improved Today patient is comfortable no new complaints vital signs stable, Physical examination prior to discharge is unremarkable Patient strongly advised to follow isolation precautions and PPE protocols, safe social distancing and other important instructions given by discharge nurse per protocol Patient verbalized understanding, Also advised to follow-up with ID primary care physician and water service supervisor per schedule Patient is stable at discharge . Discharge diagnosis: --COVID-19 infection;COVID-19 PCR positive on 01/01/2021 Current Visit: Yes Status: Acute -- Acute CHF[CHF on chest x-ray] unknown ejection fraction Current Visit: Yes Status: Acute/outpatient echo --Acute respiratory failure with hypoxia Current Visit: Yes Status: Acute --Obesity BMI 36.0-36.9,adult Current Visit: Yes Status: Acute Dietary modification, exercise as tolerated and weight reduction, when stable --Type 2 diabetes mellitus hyperglycemia A1c 12.2 Current Visit: Yes Status: Acute Accu-Chek sliding scale coverage ADA diet and insulin Cleared by consultants, stable at discharge Disposition: DC-01 TO HOME OR SELFCARE Final Discharge Diagnosis (Prints w/discharge instructions): COVID-19 infection. Covid PCR test + 01/01/2021. Acute hypoxic respiratory failure/. Acute tia estive heart failure[unknown ejection fraction]. Type 2 diabetes mellitus;. Obesity BMI 37.7 Time spent for discharge: 35 min Core Measure Documentation - Palliative Care Palliative Care/ Comfort Measures: Not Applicable - Core Measures Any of the following diagnoses?: none Exam - Constitutional Vitals: Temp Pulse Resp BP Pulse Ox 97.9 F 69 24 119/64 92 01/05/21 11:29 01/05/21 11:29 01/05/21 11:29 01/05/21 11:01/05/21 11:29 General appearance: Present: no acute distress, well-nourished - EENT Eyes: Present: PERRL, EOM intact - Neck Neck: Present: supple, normal ROM - Respiratory Respiratory effort: normal Respiratory: bilateral: diminished, negative: rales, rhonchi, wheezing - Cardiovascular Rhythm: regular Heart Sounds: Present: S1 & S2 - Extremities Extremities: no ischemia, No edema - Abdominal General gastrointestinal: Present: soft, non-tender, non-distended, normal bowel sounds - Integumentary Integumentary: Present: clear, warm - Musculoskeletal Musculoskeletal: generalized weakness - Psychiatric Psychiatric: appropriate mood/affect, cooperative - Neurologic Neurologic: moves all extremities Plan Activity: advance as tolerated Diet: diabetic Special Instructions: other (Advised weight reduction) Additional Instructions: Patient was getting 38 units Novolin 70/30 insulin twice a day during the hospital stay. However Mr. Morse does not feel comfortable taking insulin, requests pills, will prescribe Metformin 500 mg twice a day. Advised to see primary care physician in 3 to 4 days to closely monitor blood sugars and adjust the medications as needed. Advised to follow COVID-19 precautions and protocols as explained to you by the discharge nurse. Self quarantine/mask wearing/social distancing and other precautions. If you have worsening symptoms, contact MD or go to the nearest emergency room as needed. Advised to see private water service supervisor for outpatient echocardiogram, to evaluate LV function and ejection fraction. Follow up with: PRIMARY MD CHAPITO [Primary Care Provider] - 3-5 Days CHELO WOMACK MD [Staff Physician] - 14 Days Prescriptions: Dexamethasone [Decadron] 6 mg PO DAILY #4 tablet metFORMIN [Glucophage] 500 mg PO BID #60 tablet guaiFENesin DM [Guaifenesin Dm Syrup] 10 ml PO Q4H PRN #1 bottle PRN Reason: Cough Furosemide [Lasix TAB] 40 mg PO QDAY #30 tablet Pantoprazole [Protonix TAB] 40 mg PO QDAC #14 tablet Other Discharge Orders: Glucometer (Amb) Location: None Selected Glucometer supplies[Amb] Location: None Selected
== END 2021-01-05 16:15 | disposition home health service (06) | DRG 177 ==
LOC: ED 15:18 → 3A 23:13
PROVIDERS: ADMIT Hospitalist; ATTEND Internal Medicine
PROC: XW033E5 Introduction of Remdesivir Anti-infective into Peripheral Vein, Percutaneous Approach, New Technology Group 5 (ICD-10-PCS; principal; 2021-01-01)
PROC: 4A033R1 Measurement of Arterial Saturation, Peripheral, Percutaneous Approach (ICD-10-PCS; 2021-01-02)
DX: U07.1 COVID-19 (principal); J96.01 Acute respiratory failure with hypoxia; J12.82 Pneumonia due to coronavirus disease 2019; I50.9 Heart failure, unspecified; E11.65 Type 2 diabetes mellitus with hyperglycemia; E66.9 Obesity, unspecified; I11.0 Hypertensive heart disease with heart failure; J44.9 Chronic obstructive pulmonary disease, unspecified; K21.9 Gastro-esophageal reflux disease without esophagitis; Z68.37 Body mass index [BMI] 37.0-37.9, adult
CPT/HCPCS: 36415; 36600; 71046; 80048; 80053; 81001; 82140; 82550; 82728; 82803; 82947; 82962; 83036; 83615; 83690; 83735; 83880; 84145; 84484; 85007; 85025; 85379; 86140; 87040; 93005; 96374; 96375; G0378; J0456; J0696; J1100; J1644; J1815; J1940; J7050; J8540; U0003